=== PATIENT | female | born 1945 | race Caucasian/White ===

== ENCOUNTER 2020-10-05 06:08 | Emergency (ER) | payer MEDICARE, SELFPAY ==
--- NOTE | ~2020-10-05 | CT_ITS ---
EXAMINATION: CT ABDOMEN AND PELVIS WITHOUT CONTRAST CLINICAL INFORMATION: Bright red blood per rectum. History of colitis. COMPARISON: Previous CT of the abdomen and pelvis most recent September 2014 TECHNIQUE: Multidetector volumetric imaging was performed from the superior aspect of the liver through the pubic symphysis. Sagittal and coronal reformatted images were obtained on the technologist's workstation. This CT examination was performed using dose optimization techniques as appropriate, variously including the following: *Automated exposure control *Adjustment of mA and/or kV according to patient size (this includes techniques or standardized protocols for targeted exams where dose is matched to indication/reason for exam; i.e. extremities or head) *Use of iterative reconstruction technique DLP: 613 mGy-cm FINDINGS: LUNG BASES: The visualized lung bases are unremarkable. LIVER, GALLBLADDER, AND BILIARY TREE: The liver is normal in size, shape, and attenuation. No focal hepatic lesion or biliary ductal dilatation is present. The gallbladder is nondistended identified. PANCREAS: Unremarkable. SPLEEN: Unremarkable. ADRENAL GLANDS: Unremarkable. KIDNEYS AND URETERS: The kidneys are normal in size, shape, and attenuation. No hydronephrosis, hydroureter, or calculi seen. No perinephric stranding. BLADDER: Unremarkable. GASTROINTESTINAL TRACT: There is diverticulosis of the colon. No evidence of diverticulitis or colitis is seen. ABDOMINAL WALL: No significant hernia is appreciated. LYMPH NODES: Normal. VASCULAR: There is evidence of atherosclerotic disease. No aneurysm is seen. PELVIC VISCERA: There may be a small left ovarian cyst. This measures 1.2 cm. There are left ovarian calcifications. This does not appear appreciably changed. The right ovary is unremarkable. The uterus may have been removed. OSSEOUS STRUCTURES: There is an L1 vertebral body compression fracture and Schmorl's node. There are degenerative changes of the spine and hip joints. CT/CT abdomen pelvis wo con IMPRESSION: Severe diverticulosis of the colon. No evidence of diverticulitis or colitis.
[2020-10-05 06:17] VITALS: BP 175/70; PULSE 92; RESP 18; TEMP 36.4; O2SAT 95; BMI 33.2
--- NOTE | 2020-10-05 06:21 | ECG_ITS ---
Test Reason : GI BLEED Blood Pressure : / mmHG Vent. Rate : 080 BPM Atrial Rate : 080 BPM P-R Int : 150 ms QRS Dur : 066 ms QT Int : 386 ms P-R-T Axes : 091 049 063 degrees QTc Int : 445 ms Normal sinus rhythm Normal ECG When compared with ECG of 30-DEC-2017 08:55, No significant change was found Referred By: Mary Herman Electronically Signed By:ERMIAS BACA MD
--- NOTE | 2020-10-05 06:27 | ED.GIBLEED ---
HPI - GI Bleed General Chief complaint: GI Bleed Stated complaint: Rectal Bleed Time Seen by Provider: 10/05/20 06:21 Source: patient Mode of arrival: EMS History of Present Illness HPI Narrative: 75-year-old female brought in by EMS for onset of bright red blood per rectum that was painless in nature and not associated with any abdominal pain, fever, chills, vomiting, but patient states some mild nausea. Otherwise, patient denies any shortness of breath or chest pain/palpitations. Patient sources that she has a history a fake eye since childhood and has had a prior left lung removal and otherwise only surgical history is cholecystectomy and tubal ligation. Patient is unsure if she has ever had issues with stomach ulcers. Related Data Allergies Allergy/AdvReac Type Severity Reaction Status Date / Time Iodinated Contrast Media Allergy Severe RED PALMS Unverified 02/27/20 14:44 [IV Dye, Iodine Containing] SEASONAL ALLERGIES Allergy Unknown RUNNY NOSE Uncoded 02/27/20 14:44 Review of Systems Review of Systems: Pertinent positives and negatives as stated in HPI and 10 point review of systems is otherwise negative PMFSH Past Medical History Source: nursing notes reviewed Medical History Blind right eye Colitis History of prediabetes HTN (hypertension) Surgical History H/O tubal ligation History of cholecystectomy S/P partial lobectomy of lung Physical Exam Vital Signs: Vital Signs: Last Vital Signs Temp 97.6 F 10/05/20 06:17 Pulse 92 10/05/20 06:17 Resp 18 10/05/20 06:17 BP 175/70 H 10/05/20 06:17 Pulse Ox 95 10/05/20 06:17 Body Mass Index 33.2 VITAL SIGNS: Reviewed. GENERAL: Well developed, well nourished, in no acute distress. HEAD: Normocephalic/atraumatic EYES: PERRLA, EOMI, blind right eye EARS: Ext canals without abnormality NOSE: Nares patent bilateral OROPHARYNX: no oral lesions noted, posterior pharynx clear NECK: Supple, no adenopathy LUNGS: Normal breath sounds right-side. SpO2<95> CARDIOVASCULAR: Regular rate and rhythm without noted murmurs ABDOMEN: Soft, non-tender, non-distended with bowel sounds. MANDY: Noninflamed external hemorrhoids noted, minimal stool in rectal vault with light brown mixed with pinkish, good rectal tone NEUROLOGIC: Alert and oriented x 4. Course Course Course Narrative: 75-year-old female with history and clinical presentation of what appears to be lower GI bleed of unknown etiology but does not appear to be hemorrhoidal in nature. Patient is not on anticoagulation and is hemodynamically stable. Signed out to Dr Payne. MDM - GI Bleed Lab Data Result diagrams: 10/05/20 06:44 10/05/20 06:44 Labs: Lab Results 10/05/20 Range/Units 06:44 Stool Occult Blood NEGATIVE (NEGATIVE)
[2020-10-05 06:54] LABS: MANUAL DIFF FLAG NO
[2020-10-05 06:58] LABS: OBS Int Ctl Valid YES; OBS1 NEGATIVE (NEGATIVE)
[2020-10-05 07:06] LABS: Basophils Percent Auto 0.4 % (0-2); Eosinophils Absolute Auto 0.2 X10*3/uL (0.0-0.4); Eosinophils Percent Auto 1.8 % (0-4); Hematocrit 36.4 % (37-47); Hemoglobin 12.4 g/dl (12.0-16.0); Imm Gran Abs Auto 0.03 X10*3/uL (0.00-0.03); Imm Gran Pct Auto 0.4 % (0.0-0.4); Lymphocytes Percent Auto 23.9 % (20-40); Mean Corpuscular HGB Conc 34.1 g/dl (31.0-35.0); Mean Corpuscular Volume 93.8 fL (80-98); Monocytes Absolute Auto 0.6 X10*3/uL (0.1-1.2); Monocytes Percent Auto 6.8 % (2-11); Neutrophils Absolute Auto 5.6 X10*3/uL (2.0-8.3); Neutrophils Percent Auto 66.7 % (45-73); Platelet Count 201 X10*3/uL (160-400); Red Blood Count 3.88 X10*6/uL (4.20-5.50); Red Cell Distribution Width 11.9 % (11.0-16.0); White Blood Count 8.4 X10*3/uL (4.8-10.8)
[2020-10-05 07:09] LABS: COVID-19 Test Negative (Negative); IDNOW Serial# 9DD0AD1C; INTERNATIONAL NORM RATIO 1.1 (0.9-1.1)
[2020-10-05 07:19] LABS: Alanine Aminotransferase 18 U/L (0-31); Albumin Level 3.9 g/dL (3.5-5.0); Alkaline Phosphatase 86 U/L (39-117); Anion Gap 13 (12-20); Aspartate Amino Transferase 19 U/L (5-31); Bilirubin Total 0.8 mg/dL (0.0-1.0); Blood Urea Nitrogen 24 mg/dL (9-16); Calcium 9.1 mg/dL (8.4-10.2); Carbon Dioxide 22 mmol/L (22-29); Chloride 109 mmol/L (96-108); Creatinine Clr Calc Pharmacy 50.5; Estimated Glomerular Filt Rate > 60; Glucose Random 107 mg/dL (60-115); Potassium 4.1 mmol/L (3.3-5.1); Sodium 140 mmol/L (135-145); Total Protein 6.6 g/dL (6.5-8.0)
[2020-10-05 07:39] LABS: OBS Int Ctl Valid YES; OBS1 NEGATIVE (NEGATIVE)
[2020-10-05 10:57] VITALS: BP 128/69; PULSE 73
[2020-10-05 11:10] LABS: Hematocrit 36.3 % (37-47); Hemoglobin 12.5 g/dl (12.0-16.0); Mean Corpuscular HGB Conc 34.4 g/dl (31.0-35.0); Mean Corpuscular Hemoglobin 32.5 pg (27.0-33.0); Mean Corpuscular Volume 94.3 fL (80-98); Platelet Count 249 X10*3/uL (160-400); Red Blood Count 3.85 X10*6/uL (4.20-5.50); Red Cell Distribution Width 11.9 % (11.0-16.0); White Blood Count 7.1 X10*3/uL (4.8-10.8)
== END 2020-10-05 12:13 | disposition home or self-care (01) ==
PROVIDERS: Student in an Organized Health Care Education/Training Program; Emergency Provider Emergency Medicine; PCP Internal Medicine
DX: K92.2 Gastrointestinal hemorrhage, unspecified (principal); Z20.822 Contact with and (suspected) exposure to COVID-19; Z79.899 Other long term (current) drug therapy
CPT/HCPCS: 36415; 74176; 80053; 82272; 85025; 85027; 85610; 86850; 86900; 86901; 87635; 93005; 99284

== ENCOUNTER 2021-08-13 17:00 | Emergency (ER) | payer MEDICARE, SELFPAY ==
--- NOTE | ~2021-08-13 | US_ITS ---
EXAMINATION: US VENOUS ULTRASOUND WITH DOPPLER LOWER EXTREMITY, RIGHT CLINICAL INFORMATION: Pain COMPARISON: None TECHNIQUE: Ultrasound of the deep veins is performed from the hip to the calf with compression sonography and color and pulse Doppler assessment. Spectral analysis with color-flow imaging is performed. FINDINGS: There is normal venous compression and respiratory variation and augmented flow. The visualized common femoral vein, superficial femoral vein, profunda femoral vein, popliteal vein, and the trifurcation region shows no evidence of deep venous thrombosis. There is no significant popliteal fossa cyst. If the patient's symptoms persist, followup ultrasound in 5 days 7 days might be of value to exclude proximal propagation from a non-visualized calf vein. US/US venous duplex LE RT IMPRESSION: No DVT demonstrated in the right lower extremity.
[2021-08-13 17:08] VITALS: BP 175/82; PULSE 86; RESP 16; TEMP 37.1; O2SAT 98; BMI 32.1
[2021-08-13 17:21] LABS: MANUAL DIFF FLAG NO
[2021-08-13 17:23] LABS: Basophils Percent Auto 0.4 % (0-2); Eosinophils Absolute Auto 0.1 X10*3/uL (0.0-0.4); Eosinophils Percent Auto 1.5 % (0-4); Hematocrit 38.3 % (37.0-47.0); Imm Gran Abs Auto 0.02 X10*3/uL (0.00-0.03); Imm Gran Pct Auto 0.3 % (0.0-0.4); Lymphocytes Absolute Auto 2.6 X10*3/uL (1.2-4.9); Lymphocytes Percent Auto 32.9 % (20-40); Mean Corpuscular HGB Conc 33.9 g/dl (31.0-35.0); Mean Corpuscular Volume 94.3 fL (80.0-98.0); Mean Platelet Volume 9.7 fL (9.4-12.3); Monocytes Absolute Auto 0.5 X10*3/uL (0.1-1.2); Monocytes Percent Auto 6.8 % (2-11); Neutrophils Absolute Auto 4.6 x10*3/uL (2.0-8.3); Neutrophils Percent Auto 58.1 % (45-73); Platelet Count 258 X10*3/uL (160-400); Red Blood Count 4.06 X10*6/uL (4.20-5.50); Red Cell Distribution Width 12.1 % (11.0-16.0); White Blood Count 7.9 X10*3/uL (4.8-10.8)
[2021-08-13 17:40] LABS: Anion Gap 10 (12-20); Blood Urea Nitrogen 23 mg/dL (9-16); Calcium 9.5 mg/dL (8.4-10.2); Carbon Dioxide 28 mmol/L (22-29); Chloride 106 mmol/L (96-108); Creatinine Clr Calc Pharmacy 41.3; Estimated Glomerular Filt Rate 50; Glucose Random 100 mg/dL (60-115); Sodium 140 mmol/L (135-145)
--- NOTE | 2021-08-13 19:04 | ED_ITS ---
HPI - General Adult General Chief complaint: Extremity Injury, Lower <EDU Rodas - Last Filed: 08/13/21 19:10> Stated complaint: bruised R leg possible blood clot <EDU Rodas - Last Filed: 08/13/21 19:10> Time Seen by Provider: 08/13/21 17:55 <EDU Rodas - Last Filed: 08/13/21 19:10> History of Present Illness HPI narrative: Patient complains of right thigh pain and bruising for about 8 weeks after a full which injured the back of her thigh, she did have an ultrasound done by her primary doctor which was negative for blood clot, she is concerned today as some of the bruising some of the swelling and some of the pain still remain af ter a week's There is no shortness of breath no other complaints no new injury <EDU Rodas - Last Filed: 08/13/21 19:10> Related Data Allergies/adverse reactions: Allergies Allergy/AdvReac Type Severity Reaction Status Date / Time Iodinated Contrast Media Allergy Severe RED PALMS Unverified 02/27/20 14:44 [IV Dye, Iodine Containing] SEASONAL ALLERGIES Allergy Unknown RUNNY NOSE Uncoded 02/27/20 14:44 <EDU Rodas - Last Filed: 08/13/21 19:10> Review of Systems Review of Systems: Positive for right thigh pain Negative no fever no chills no dizziness no weakness no headache no neck pain no chest pain no shortness of breath no difficulty breathing no abdominal pain no nausea or vomiting no other extremity pains no numbness weakness or tingling <EDU Rodas - Last Filed: 08/13/21 19:10> Yes all other systems are reviewed and are negative <EDU Rodas - Last Filed: 08/13/21 19:10> PMFSH Past Medical History Source: nursing notes reviewed <EDU Rodas - Last Filed: 08/13/21 19:10> Medical History: Medical History Blind right eye Colitis History of prediabetes HTN (hypertension) <EDU Rodas Last Filed: 08/13/21 19:10> Surgical History: Surgical History H/O tubal ligation History of cholecystectomy S/P partial lobectomy of lung <EDU Rodas - Last Filed: 08/13/21 19:10> Social History Social History: Social History Advance Directives: No Advance Directives Information Provided: No <EDU Rodas Last Filed: 08/13/21 19:10> Physical Exam ED Vital Signs: Vital Signs - 24 hr 08/13/21 17:08 08/13/21 19:07 Temperature 98.7 F 97.5 F Pulse Rate 86 88 Respiratory Rate 16 20 Blood Pressure 175/82 H 162/71 H Pulse Oximetry 98 97 BMI result Body Mass Index 32.1 <EDU Rodas Last Filed: 08/13/21 19:10> Vital Signs - 24 hr 08/13/21 17:08 08/13/21 19:07 Temperature 98.7 F 97.5 F Pulse Rate 86 88 Respiratory Rate 16 20 Blood Pressure 175/82 H 162/71 H Pulse Oximetry 98 97 BMI result Body Mass Index 32.1 <EDU Freire Last Filed: 08/13/21 19:40> General appearance is no acute distress Head is normocephalic atraumatic Neck is supple nontender Chest is clear to auscultation no respiratory distress The back full range of motion The extremities the right lateral posterior thigh has mild ecchymosis, mild swelling and some tenderness, there is full range of motion in the hip and the knee, skin is intact and neurovascular intact distal Neuro gait and balance are normal, motor is 5/5 x4 and sensation is intact and symmetrical <EDU Rodas - Last Filed: 08/13/21 19:10> Course Course Course Narrative: Ultrasound results is pending and case is signed out to physician felicia palomo to communicate results and re-evaluate dispo patient <EDU Rodas Last Filed: 08/13/21 19:10> Reevaluation(s) Reevaluation #1: Ultrasound negative for DVT of the right lower extremity. At this time patient will be discharged home. Advised her to follow-up with her PCP. Return with new or worsening symptoms. Comfortable discharge home. <EDU Freire - Last Filed: 08/13/21 19:40> Time: 19:39 <EDU Freire - Last Filed: 08/13/21 19:40> Medical Decision Making Lab Data Result diagrams: : 08/13/21 17:17 08/13/21 17:17 <EDU Rodas - Last Filed: 08/13/21 19:10> Labs: Lab Results 08/13/21 08/13/21 Range/Units 17:17 17:17 WBC 7.9 (4.8-10.8) X10*3/uL RBC 4.06 L (4.20-5.50) X10*6/uL Hgb 13.0 (12.0-16.0) g/dl Hct 38.3 (37.0-47.0) % MCV 94.3 (80.0-98.0) fL MCH 32.0 (27.0-33.0) pg MCHC 33.9 (31.0-35.0) g/dl RDW 12.1 (11.0-16.0) % Plt Count 258 (160-400) X10*3/uL MPV 9.7 (9.4-12.3) fL Immature Gran % (Auto) 0.3 (0.0-0.4) % Neut % (Auto) 58.1 (45-73) % Lymph % (Auto) 32.9 (20-40) % Christian % (Auto) 6.8 (2-11) % Eos % (Auto) 1.5 (0-4) % Baso % (Auto) 0.4 (0-2) % Lymph # (Auto) 2.6 (1.2-4.9) X10*3/uL Christian # (Auto) 0.5 (0.1-1.2) X10*3/uL Eos # (Auto) 0.1 (0.0-0.4) X10*3/uL Baso # (Auto) 0.0 (0.0-0.2) X10*3/uL Abs Immat Gran (auto) 0.02 (0.00-0.03) X10*3/uL Absolute Neuts (auto) 4.6 (2.0-8.3) x10*3/uL Absolute Nucleated RBC 0.000 (0.0-0.012) X10*3/uL Nucleated RBC % (auto) 0.0 (0.0-0.2) /100WBC Sodium 140 (135-145) mmol/L Potassium 4.0 (3.3-5.1) mmol/L Chloride 106 (96-108) mmol/L Carbon Dioxide 28 (22-29) mmol/L Anion Gap 10 L (12-20) BUN 23 H (9-16) mg/dL Creatinine 1.07 (0.5-1.4) mg/dL Estim Creat Clear Calc 41.3 Estimated GFR 50 Random Glucose 100 (60-115) mg/dL Calcium 9.5 (8.4-10.2) mg/dL <EDU Rodas - Last Filed: 08/13/21 19:10> Lab Results 08/13/21 08/13/21 Range/Units 17:17 17:17 WBC 7.9 (4.8-10.8) X10*3/uL RBC 4.06 L (4.20-5.50) X10*6/uL Hgb 13.0 (12.0-16.0) g/dl Hct 38.3 (37.0-47.0) % MCV 94.3 (80.0-98.0) fL MCH 32.0 (27.0-33.0) pg MCHC 33.9 (31.0-35.0) g/dl RDW 12.1 (11.0-16.0) % Plt Count 258 (160-400) X10*3/uL MPV 9.7 (9.4-12.3) fL Immature Gran % (Auto) 0.3 (0.0-0.4) % Neut % (Auto) 58.1 (45-73) % Lymph % (Auto) 32.9 (20-40) % Christian % (Auto) 6.8 (2-11) % Eos % (Auto) 1.5 (0-4) % Baso % (Auto) 0.4 (0-2) % Lymph # (Auto) 2.6 (1.2-4.9) X10*3/uL Christian # (Auto) 0.5 (0.1-1.2) X10*3/uL Eos # (Auto) 0.1 (0.0-0.4) X10*3/uL Baso # (Auto) 0.0 (0.0-0.2) X10*3/uL Abs Immat Gran (auto) 0.02 (0.00-0.03) X10*3/uL Absolute Neuts (auto) 4.6 (2.0-8.3) x10*3/uL Absolute Nucleated RBC 0.000 (0.0-0.012) X10*3/uL Nucleated RBC % (auto) 0.0 (0.0-0.2) /100WBC Sodium 140 (135-145) mmol/L Potassium 4.0 (3.3-5.1) mmol/L Chloride 106 (96-108) mmol/L Carbon Dioxide 28 (22-29) mmol/L Anion Gap 10 L (12-20) BUN 23 H (9-16) mg/dL Creatinine 1.07 (0.5-1.4) mg/dL Estim Creat Clear Calc 41.3 Estimated GFR 50 Random Glucose 100 (60-115) mg/dL Calcium 9.5 (8.4-10.2) mg/dL <EDU Freire - Last Filed: 08/13/21 19:40> Discharge Plan Discharge Clinical Impression: Pain in right thigh <EDU Rodas - Last Filed: 08/13/21 19:10> Patient Disposition: Home, Self-Care <EDU Rodas - Last Filed: 08/13/21 19:10> Additional Instructions: Ultrasound was done and did not show any blood clot in the right thigh It is possible that all these symptoms are remaining from the traumatic injury a weeks ago, but it has been a long time so follow closely with primary doctor or orthopedist, physical therapy may be helpful Worrisome symptoms include shortness of breath, worsening leg swelling, pain, nausea, vomiting, chest pain. If symptoms fail to resolve you may need further evaluation or CT scan of the extremity to rule out any other possible cause of the mild swelling and continued pain Return to the ER any time any worse condition or any concerns <EDU Rodas Last Filed: 08/13/21 19:10> Referrals: Cindy Simpson MD [Primary Care Provider] - 2 days Tano Benson MD [Physician] - 1 week <EDU Rodas - Last Filed: 08/13/21 19:10> Stand Alone Forms: Work/School Release <EDU Rodas - Last Filed: 08/13/21 19:10>
[2021-08-13 19:07] VITALS: BP 162/71; PULSE 88; RESP 20; TEMP 36.4; O2SAT 97
--- NOTE | 2021-08-13 20:08 | PC.NURSE ---
PT a&o, no sob or chest pain. pt getting dressed. Reviewed discharge instructions. Pt verbalized understanding.
== END 2021-08-13 20:16 | disposition home or self-care (01) ==
PROVIDERS: Emergency Provider Emergency Medicine Emergency Medical Services; PCP Internal Medicine
DX: M79.604 Pain in right leg (principal); R60.0 Localized edema; Z79.899 Other long term (current) drug therapy
CPT/HCPCS: 36415; 80048; 85025; 93971; 99283; 99284

== ENCOUNTER 2022-05-02 12:01 | Emergency (ER) | payer MEDICARE, SELFPAY ==
--- NOTE | ~2022-05-02 | XR_ITS ---
EXAMINATION: XR CHEST CLINICAL INFORMATION: Cough and SOB COMPARISON: None TECHNIQUE: 2 views of the chest were obtained. FINDINGS: The lungs are well-expanded and clear. Heart size and perivascular is normal. The heart size is mildly enlarged. Pulmonary vascularity is within normal limits. No gross bony abnormality seen. XR/XR chest 2V IMPRESSION: Mild cardiomegaly. No acute process seen.
--- NOTE | 2022-05-02 12:06 | ECG_ITS ---
Test Reason : weakness Blood Pressure : / mmHG Vent. Rate : 082 BPM Atrial Rate : 082 BPM P-R Int : 170 ms QRS Dur : 064 ms QT Int : 354 ms P-R-T Axes : 069 042 061 degrees QTc Int : 413 ms Normal sinus rhythm Nonspecific ST abnormality Inferior leads Abnormal ECG When compared with ECG of 05-OCT-2020 07:23, ST more depressed Inferior leads Referred By: Aida Rosen Electronically Signed By:PHYLLIS JACKSON MD
--- NOTE | 2022-05-02 12:06 | ED.GENADULT ---
HPI - General Adult General Chief complaint: Upper Respiratory Symptoms Stated complaint: FLU LIKE SINCE T-I PER EMS Time Seen by Provider: 05/02/22 12:05 Source: patient, family (daughter) and EMS Mode of arrival: EMS Limitations: no limitations History of Present Illness HPI narrative: Patient is a 76 year old assigned female at with a history of lung cancer s/p left lobe resection presenting to the emergency department today with a cough and feeling generally unwell. Patient states that since yesterday, she has felt unwell with a cough and chills. Patient denies any dizziness, lightheadedness, abdominal pain, nausea, vomiting, fever, chills, blurry vision, double vision, loss of vision, chest pain, difficulty breathing, shortness of breath, back pain, night sweats, pain with urination, increased urinary frequency, increased urinary urgency, blood in her urine or stool, syncope or a near syncopal episode, recent trauma or falls, bowel incontinence, bladder incontinence, bowel retention, bladder retention, or any other complaints at this time. Onset (ago): day(s) (1) Severity: mild Severity scale (1-10): 2 Relieving factors: none Exacerbating factors: none Associated symptoms: cough and fever/chills Treatments prior to arrival: none Related Data Previous Rx's Medication Instructions Recorded benzonatate 100 mg capsule 100 mg PO BID PRN cough 7 days #14 05/02/22 caps Allergies Allergy/AdvReac Type Severity Reaction Status Date / Time Iodinated Contrast Media Allergy Severe RED PALMS Unverified 02/27/20 14:44 [IV Dye, Iodine Containing] SEASONAL ALLERGIES Allergy Unknown RUNNY NOSE Uncoded 02/27/20 14:44 Review of Systems Constitutional: Constitutional: Reports no additional constitutional complaints, Reports chills, Denies fever(s) and Denies night sweats Eyes: Eyes: Reports no additional eye complaints, Denies blurry vision, Denies change in vision, Denies diplopia, Denies eye discharge, Denies loss of vision and Denies eye pain ENT: Denies dizziness Cardiovascular: Cardiovascular: Reports no additional cardiovascular complaints, Denies chest pain, Denies lightheadedness, Denies Loss of Consciousness and Denies dyspnea Respiratory: Respiratory: Reports no additional respiratory complaints, Reports cough and Denies dyspnea Gastrointestinal: Gastrointestinal: Reports no additional gastrointestinal complaints, Denies abdominal pain, Denies melena, Denies hematochezia, Denies change in bowel habits and Denies change in stool character Genitourinary: Genitourinary: Denies hematuria, Denies urinary frequency, Denies dysuria, Denies urinary incontinence, Denies urinary hesitancy and Denies urinary urgency Musculoskeletal: Musculoskeletal: Reports no additional musculoskeletal complaints, Denies numbness and Denies tingling Neurologic: Denies dizziness, Denies loss of vision, Denies numbness and Denies tingling Psychiatric: Psychiatric: Reports no additional psychiatric complaints Endocrine: Endocrine: Reports no additional endocrine complaints Hematologic/Lymphatic: Hematologic/Lymphatic: Reports no additional hematologic/lymphatic complaints Allergic/Immunologic: Allergic/Immunologic: Reports no additional allergic/immunologic complaints PMF Past Medical History Attestation statement: The following information was validated with the patient. Source: old records reviewed Medical History Blind right eye Colitis History of prediabetes HTN (hypertension) Surgical History H/O tubal ligation History of cholecystectomy S/P partial lobectomy of lung Social History Social History Advance Directives: Yes Advance Directives Information Provided: Yes Advance Directives on File: No Physical Exam ED Vital Signs: Vital Signs - 24 hr 05/02/22 12:37 Temperature 98.2 F Pulse Rate 81 Respiratory Rate 14 Blood Pressure 138/74 Pulse Oximetry 95 Oxygen Delivery Method Room Air BMI result Body Mass Index 30.8 Const General: cooperative, no acute distress, alert and awake Nutritional Appearance: well nourished Orientation/consciousness: patient oriented x3 Limitations: no limitations [facility] Head: Yes normal to inspection and Yes atraumatic Ears: hearing grossly normal bilaterally and external ears normal General nose exam: Normal external nose present, no nasal discharge noted and no epistaxis Face and sinus: Yes normal facial exam, No abrasion and No laceration Mouth: Normal oral and palatal mucosa present, no drooling and no muffled voice Eyes General: appearance normal, both eyes and all related structures Periorbital: periorbital findings normal Eyelids: Yes eyelids normal Conjunctivae: conjunctivae normal Pupils: Equal, round and reactive pupils present EOM: EOMs intact bilaterally Neck Neck: Yes normal visual inspection, Yes full ROM and Yes no lymphadenopathy Chest Chest palpation & inspection: normal inspection of the chest Resp Effort & Inspection: normal respiratory effort and able to speak in complete sentences Auscultation: clear to auscultation bilaterally Cardio Rate: regular rate Rhythm: regular rhythm GI Inspection: Yes normal to inspection Neuro General: patient oriented x3 and moves all extremities Cranial nerves: Yes Equal, round and reactive pupils present Cognition (Neuro): normal cognition Motor exam (neuro): 5/5 motor strength present throughout Sensory Exam: Normal double simultaneous stimulation for sensation Coordination: [id number] test normal Extrem General: Yes normal to inspection, Yes full ROM and Yes capillary refill normal Psych Appearance: grossly normal Mental Status: mental status grossly normal Affect: normal affect Attitude: cooperative Thought process: Normal thought process present Thought content: Normal thought content present Insight: Good insight present (Psych) Medical Decision Making MDM Narrative Medical decision making narrative: Patient is a 76 year old assigned female at with a history of lung cancer s/p left lobe resection presenting to the emergency department today with a cough and chills. Patient's physical exam was unremarkable. Patient's blood work was unremarkable. Patient's EKG was unremarkable. Patient's chest x-ray showed no acute process. Patient's rapid influenza test was positive. I explained my physical exam findings as well as all test results to the patient and the patient's daughter. I answered all questions asked by the patient and the patient's daughter. I stressed the importance of the patient taking her medication as prescribed. I stressed the importance of the patient following up with her primary care provider. I stressed the importance of the patient returning to the emergency department immediately if her symptoms were to worsen or if she were to develop any dizziness, shortness of breath, difficulty breathing, chest pain, blurry vision, loss of vision, nausea, vomiting, abdominal pain, fever, chills, back pain, or any other complaints. Patient and the patient's daughter verbalized agreement and understanding with this treatment plan and discharge. Medical Records Medical records reviewed: Yes I reviewed the patient's medical records. Lab Data Lab results reviewed: Yes I reviewed the patient's lab results. Result diagrams: 05/02/22 12:48 05/02/22 12:48 Labs: Lab Results 05/02/22 05/02/22 05/02/22 Range/Units 12:42 12:48 12:48 WBC 6.2 (4.8-10.8) X10*3/uL RBC 4.21 (4.20-5.50) X10*6/uL Hgb 13.3 (12.0-16.0) g/dl Hct 39.6 (37.0-47.0) % MCV 94.1 (80.0-98.0) fL MCH 31.6 (27.0-33.0) pg MCHC 33.6 (31.0-35.0) g/dl RDW 11.8 (11.0-16.0) % Plt Count 231 (160-400) X10*3/uL MPV 9.6 (9.4-12.3) fL Immature Gran % (Auto) 0.2 (0.0-0.4) % Neut % (Auto) 82.4 H (45-73) % Lymph % (Auto) 10.6 L (20-40) % Sterling % (Auto) 5.6 (2-11) % Eos % (Auto) 0.6 (0-4) % Baso % (Auto) 0.6 (0-2) % Lymph # (Auto) 0.7 L (1.2-4.9) X10*3/uL Sterling # (Auto) 0.4 (0.1-1.2) X10*3/uL Eos # (Auto) 0.0 (0.0-0.4) X10*3/uL Baso # (Auto) 0.0 (0.0-0.2) X10*3/uL Abs Immat Gran (auto) 0.01 (0.00-0.03) X10*3/uL Absolute Neuts (auto) 5.1 (2.0-8.3) x10*3/uL Absolute Nucleated RBC 0.000 (0.0-0.012) X10*3/uL Nucleated RBC % (auto) 0.0 (0.0-0.2) /100WBC Sodium 140 (135-145) mmol/L Potassium 4.3 (3.3-5.1) mmol/L Chloride 107 (96-108) mmol/L Carbon Dioxide 23 (22-29) mmol/L Anion Gap 14 (12-20) BUN 17 H (9-16) mg/dL Creatinine 0.92 (0.5-1.4) mg/dL Estim Creat Clear Calc 50.9 Estimated GFR 59 Random Glucose 109 (60-115) mg/dL Calcium 8.6 D (8.4-10.2) mg/dL Magnesium 2.1 (1.6-2.6) mg/dL Total Bilirubin 0.7 (0.0-1.0) mg/dL AST 27 D (5-31) U/L ALT 23 (0-31) U/L Alkaline Phosphatase 83 (39-117) U/L Troponin I High Sens (<3.5-17.0) ng/L B-Natriuretic Peptide (<100) pg/mL Total Protein 6.7 (6.5-8.0) g/dL Albumin 3.7 (3.5-5.0) g/dL Influenza Type A (PCR) POSITIVE A (Negative) Influenza Type B (PCR) NEGATIVE (Negative) RSV RNA Qual (PCR) NEGATIVE (Negative) SARS-CoV-2 RNA (RT-PCR) NEGATIVE (Negative) 05/02/22 05/02/22 Range/Units 12:48 12:49 WBC (4.8-10.8) X10*3/uL RBC (4.20-5.50) X10*6/uL Hgb (12.0-16.0) g/dl Hct (37.0-47.0) % MCV (80.0-98.0) fL MCH (27.0-33.0) pg MCHC (31.0-35.0) g/dl RDW (11.0-16.0) % Plt Count (160-400) X10*3/uL MPV (9.4-12.3) fL Immature Gran % (Auto) (0.0-0.4) % Neut % (Auto) (45-73) % Lymph % (Auto) (20-40) % Sterling % (Auto) (2-11) % Eos % (Auto) (0-4) % Baso % (Auto) (0-2) % Lymph # (Auto) (1.2-4.9) X10*3/uL Sterling # (Auto) (0.1-1.2) X10*3/uL Eos # (Auto) (0.0-0.4) X10*3/uL Baso # (Auto) (0.0-0.2) X10*3/uL Abs Immat Gran (auto) (0.00-0.03) X10*3/uL Absolute Neuts (auto) (2.0-8.3) x10*3/uL Absolute Nucleated RBC (0.0-0.012) X10*3/uL Nucleated RBC % (auto) (0.0-0.2) /100WBC Sodium (135-145) mmol/L Potassium (3.3-5.1) mmol/L Chloride (96-108) mmol/L Carbon Dioxide (22-29) mmol/L Anion Gap (12-20) BUN (9-16) mg/dL Creatinine (0.5-1.4) mg/dL Estim Creat Clear Calc Estimated GFR Random Glucose (60-115) mg/dL Calcium (8.4-10.2) mg/dL Magnesium (1.6-2.6) mg/dL Total Bilirubin (0.0-1.0) mg/dL AST (5-31) U/L ALT (0-31) U/L Alkaline Phosphatase (39-117) U/L Troponin I High Sens 3.5 (<3.5-17.0) ng/L B-Natriuretic Peptide 141 H (<100) pg/mL Total Protein (6.5-8.0) g/dL Albumin (3.5-5.0) g/dL Influenza Type A (PCR) (Negative) Influenza Type B (PCR) (Negative) RSV RNA Qual (PCR) (Negative) SARS-CoV-2 RNA (RT-PCR) (Negative) Imaging Data Chest x-ray: Attestation: I personally reviewed and interpreted this imaging study as follows: My impression: No acute process. Radiologist's impression: EXAMINATION: XR CHEST CLINICAL INFORMATION: Cough and SOB COMPARISON: None TECHNIQUE: 2 views of the chest were obtained. FINDINGS: The lungs are well-expanded and clear. Heart size and perivascular is normal. The heart size is mildly enlarged. Pulmonary vascularity is within normal limits. No gross bony abnormality seen. XR/XR chest 2V IMPRESSION: Mild cardiomegaly. No acute process seen. ? Dictated By: Ian Brown MD Signed By: Electronically signed by Ian Brown MD 05/02/22 1256 ECG Data Attestation: I personally reviewed and interpreted this ECG as follows: Prior ECG tracings: available for review Interpretation: Vent. Rate: 082 BPM ? ? Atrial Rate: 082 BPM P-R Int: 170 ms? QRS Dur: 064 ms QT Int: 354 ms ? ? ? P-R-T Axes: 069 042 061 degrees QTc Int: 413 ms ? Normal sinus rhythm Normal ECG When compared with ECG of 05-OCT-2020 07:23, No significant change was found ? DD/ 1252 Discharge Plan Discharge Clinical Impression: Influenza A Patient Disposition: Home, Self-Care Instructions: Influenza (ED) Additional Instructions: Follow up with your primary care provider. Return to the emergency department immediately if your symptoms worsen or if you develop any dizziness, shortness of breath, difficulty breathing, chest pain, blurry vision, loss of vision, nausea, vomiting, abdominal pain, fever, chills, back pain, or any other complaints. Prescriptions: New benzonatate 100 mg capsule 100 mg PO BID PRN (Reason: cough) 7 Days Qty: 14 0RF Referrals: Cindy Simpson MD [Primary Care Provider] - Interventions: ED Discharge Assessment Last Done: 05/02/22 14:15 Discharge Date/Time: 05/02/22 14:15 Print Language: Lao
[2022-05-02 12:25] VITALS: BP 160/80; O2SAT 97
[2022-05-02 12:37] VITALS: BP 138/74; PULSE 81; RESP 14; TEMP 36.8; O2SAT 95; BMI 30.8
[2022-05-02 12:52] LABS: MANUAL DIFF FLAG NO
[2022-05-02 12:55] LABS: Basophils Percent Auto 0.6 % (0-2); Eosinophils Percent Auto 0.6 % (0-4); Hematocrit 39.6 % (37.0-47.0); Hemoglobin 13.3 g/dl (12.0-16.0); Imm Gran Abs Auto 0.01 X10*3/uL (0.00-0.03); Imm Gran Pct Auto 0.2 % (0.0-0.4); Lymphocytes Absolute Auto 0.7 X10*3/uL (1.2-4.9); Lymphocytes Percent Auto 10.6 % (20-40); Mean Corpuscular HGB Conc 33.6 g/dl (31.0-35.0); Mean Corpuscular Hemoglobin 31.6 pg (27.0-33.0); Mean Corpuscular Volume 94.1 fL (80.0-98.0); Mean Platelet Volume 9.6 fL (9.4-12.3); Monocytes Absolute Auto 0.4 X10*3/uL (0.1-1.2); Monocytes Percent Auto 5.6 % (2-11); Neutrophils Absolute Auto 5.1 x10*3/uL (2.0-8.3); Neutrophils Percent Auto 82.4 % (45-73); Platelet Count 231 X10*3/uL (160-400); Red Blood Count 4.21 X10*6/uL (4.20-5.50); Red Cell Distribution Width 11.8 % (11.0-16.0); White Blood Count 6.2 X10*3/uL (4.8-10.8)
--- OUTSIDE RECORDS SUMMARY | 2022-05-02 12:59 | XMS_ITS | Continuity of Care Document ---
:1945 Author Organization [facility] Address [address] [place] [id number]- Care Team Providers Name Role Phone Tatiana MORENO, Cindy [facility] Care [id number] Date(s): 03/29/22 - 04/28/22 [facility] [address] [place], [place] [address] Attending Physician: Toshia Montero Admitting Physician: AdmToshia rebollar Referring Physician: AdmtrToshia Allergies, Adverse Reactions, Alerts Substance Reaction Severity Status Other Environmental Allergy Acti ve Medications Advair Diskus 100 mcg-50 mcg inhalation powder 1 puffs, Inhalation, 2 times a day, # 180 each, 0 Refills, Maintenance, Powder Start Date: 03/11/11 Status: Orderedaspirin 81 mg oral tablet 1 tablet, By Mouth, Daily, # 30 tablet, 0 Refills, Maintenance, Tablet Start Date: 03/11/11 Status: Orderedcilostazol 50 mg oral tablet 1 tablet, By Mouth, 2 times a day, # 180 tablet, 0 Refills, Maintenance, Tablet Start Date: 03/11/11 Status: OrderedCompression Stockings See Instructions, # 2 pair, Refills 1, Tot. Refills 1, Maintenance, open toessurgical, calf length 20-30 mm Hg ins # [id number], 10/18/13 13:29:38 Start Date: 10/18/13 Status: OrderedCompression Stockings surgical, knee high length 20-30 mm Hg, # 4 pair, Maintenance, CVI Open toe, 11/15/18 8:33:16 EDT, Compound Start Date: 11/15/18 Status: OrderedCompression Stockings See Instructions, # 2 each, Maintenance, surgical, knee length 20-30 mm Hg, 03/29/22 15:01:00 EDT, Supply Start Date: 03/29/22 Status: OrderedCompression Stockings See Instructions, # 2 each, Refills 2, Tot. Refills 2, Maintenance, surgical, knee length 20-30 mm Hg DX: I87.2 I73.9, 01/01/21 16:13:00 EDT, Supply Start Date: 01/01/21 Status: OrderedCompression Stockings See Instructions, # 4 pair, Maintenance, surgical, calf length 20-30 mm Hg dx: pvd, venous insufficiency, 09/25/15 9:42:36 Start Date: 09/25/15 Status: Orderedcustom molded SHOE INSERT custom molded SHOE INSERT, See Instructions, # 1 pair, Refills 0, Tot. 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, 09/25/15 9:41:42, Compound Start Date: 09/25/15 Status: Orderedlisinopril 40 mg oral tablet 1 tablet, By Mouth, Daily, # 30 tablet, 0 Refills, Maintenance, Tablet Start Date: 03/11/11 Status: Orderedmetoprolol 25 mg oral tablet 0.5 tablet = 12.5 mg, By Mouth, 2 times a day, # 180 tablet, 0 Refills, Maintenance, 03/11/11 9:46:59 EDT, Tablet Start Date: 03/11/11 Status: Orderedomeprazole 20 mg oral enteric coated tablet 1 tablet, By Mouth, 2 times a day, # 120 tablet, 0 Refills, Maintenance, EC Tablet Start Date: 03/11/11 Status: Orderedsimvastatin 10 mg oral tablet 1 tablet, By Mouth, Daily at bedtime, # 30 tablet, 0 Refills, Maintenance, Tablet Start Date: 03/11/11 Status: OrderedTrelegy Ellipta 200 mcg-62.5 mcg-25 mcg/inh inhalation powder 0 Refills, Maintenance, 03/29/22 14:46:00 EDT, Partial fill upon patient request if the prescriptionis for a schedule II opioid drug. Start Date: 03/29/22 Status: Ordered Problem List Condition Confirmation Course Effective Dates Status Health I nformant Status AAA - Abdominal Confirmed Active aortic aneurysm Carotid artery Confirmed Active stenosis Obese class I Confirmed Active Pad Confirmed Active Venous (peripheral) Confirmed Active insufficiency Social History Social History Type Response Smoking Status Former smoker entered on: 09/23/14 Sex Note Event Display: Ultrasound Neck, Non-BH Authored Date: Patient Care team information Care Team PersonnelName: Kiesha Benito Position: [facility] Outreach Member Role: Lifetime Consulting Physician Name: Cindy Simpson MD Position: Reference Physician Member Role: PCP Address: Address: [address] [place] [phone]- Care Team Related PersonsName: RAFAT ROBERTS Address: home [address] [place] [id number] Name: LEANN REGALADO Address: home [address] [place] [address]
--- OUTSIDE RECORDS SUMMARY | 2022-05-02 12:59 | XMS_ITS | Continuity of Care Document ---
:1945 Author Organization [facility] Address [address] [place] [address]- Care Team Providers Name Role Phone Tatiana MORENO, Cindy [id number] Date(s): 03/25/22 - 04/24/22 [facility] [address] [address]- Attending Physician: Toshia Montero Admitting Physician: AdmtrToshia Referring Physician: Admtr, Ar8 Allergies, Adverse Reactions, Alerts Substance Reaction Severity [...] calf length 20-30 mm Hg ins # [id number], 10/18/13 13:29:38 Start Date: 10/18/13 Status: OrderedCompression [...] Status Former smoker entered on: 09/23/14 Sex Patient Care team information Care Team PersonnelName: Kiesha Benito Position: [facility] Outreach Member Role: Lifetime Consulting Physician Name: Cindy Simpson MD Position: Reference Physician Member Role: PCP Address: Address: [address] [place] [address]- Care Team Related PersonsName: RAFAT ROBERTS Address: home [address] [id number] Name: LEANN REGALADO Address: home [address] [place] [address]
--- OUTSIDE RECORDS SUMMARY | 2022-05-02 12:59 | XMS_ITS | Continuity of Care Document ---
:1945 Author Organization [facility] Address [address] [place] [address]- Care Team Providers Name Role Phone Cindy Simpson MD Primary Care Physician Encounter [facility] Date(s): 06/10/19 - 06/17/19 [facility] [address] [place] [address]- [facility] Attending Physician: Shelby Jordan NP Admitting Physician: Shelby Jordan NP Referring Physician: Cindy Simpson MD Allergies, Adverse Reactions, Alerts Substance Reaction Severity [...] Refills, Maintenance, Tablet Start Date: 03/11/11 Status: OrderedCombivent 103 mcg-18 mcg/inh inhalation aerosol with adapter 2 puffs, Inhalation, 4 times a day, # 14.7 Gm, 0 Refills, Maintenance, Aerosol Start Date: 03/11/11 Status: OrderedCompression Stockings See Instructions, # 4 pair, Maintenance, surgical, calf length 20-30 mm Hg dx: pvd, venous insufficiency, 09/25/15 9:42:36 Start Date: 09/25/15 Status: OrderedCompression Stockings See Instructions, # 2 pair, Refills 1, Tot. Refills 1, Maintenance, open toessurgical, calf length 20-30 mm Hg ins # [id number], 10/18/13 13:29:38 Start Date: 10/18/13 Status: OrderedCompression Stockings surgical, knee high length 20-30 mm Hg, # 4 pair, Maintenance, CVI Open toe, 11/15/18 8:33:16 EDT, Compound Start Date: 11/15/18 Status: Orderedcustom molded SHOE INSERT custom molded [...] Refills, Maintenance, Tablet Start Date: 03/11/11 Status: Ordered Problem List Condition Effective Dates Status Health Status Informant AAA - Abdominal aortic Active aneurysm(Confirmed) Carotid artery stenosis(Confirmed) Active Pad(Confirmed) Active Venous (peripheral) Active insufficiency(Confirmed) Vital Signs Most recent to oldest [Reference Range]: 1 Height 152.4 cm (06/10/19 11:55 AM) Weight 78.93 kg (06/10/19 11:55 AM) Body Mass Index [18.5-24.99] 33.98 *>HHI* (06/10/19 11:55 AM) Blood Pressure [90-138/55-84 mm Hg] 130/78 mm Hg (06/10/19 11:55 AM) Blood pressure sites Arm, left (06/10/19 11:55 AM) Weight Obtained Via Patient/family stated (06/10/19 11:55 AM) Social History Social History Type Response Smoking Status Former smoker entered on: 09/23/14 Sex
--- OUTSIDE RECORDS SUMMARY | 2022-05-02 12:59 | XMS_ITS | Continuity of Care Document ---
:1945 Author Organization [facility] Address [address] [place] [phone]- Care Team Providers Name Role Phone Tatiana MORENO, Cindy Primary Care Physician Encounter [facility] Date(s): 06/09/20 - 07/09/20 [facility] [address] [place] [id number] Attending Physician: Toshia Montero Admitting Physician: AdmToshia [...] calf length 20-30 mm Hg ins # [id number], 10/18/13 13:29:38 Start Date: 10/18/13 Status: OrderedCompression Stockings surgical, knee high length 20-30 mm Hg, # 4 pair, Maintenance, CVI Open toe, 11/15/18 8:33:16 EDT, Compound Start Date: 11/15/18 Status: OrderedCompression Stockings See Instructions, # 4 [...] Active Pad(Confirmed) Active Venous (peripheral) Active insufficiency(Confirmed) Social History Social History Type Response Smoking Status Former smoker entered on: 09/23/14 Sex
--- OUTSIDE RECORDS SUMMARY | 2022-05-02 12:59 | XMS_ITS | Continuity of Care Document ---
:1945 Author Organization [facility] Address [address] [place] [address]- Care Team Providers Name Role Phone Tatiana MORENO, Cindy Primary Care Physician [id number] Date(s): 03/03/22 - 04/02/22 [facility] [address] [place] [id number] Allergies, Adverse Reactions, Alerts Substance Reaction Severity [...] calf length 20-30 mm Hg ins # [id number], 10/18/13 13:29:38 Start Date: 10/18/13 Status: OrderedCompression [...] on: 09/23/14 Sex Patient Care team information PersonnelName: Tatiana MORENO, Cindy Address: Address: [address] [place] [address]
--- OUTSIDE RECORDS SUMMARY | 2022-05-02 12:59 | XMS_ITS | Continuity of Care Document ---
:1945 Author Organization [facility] Address [address] [place] [address]- Care Team Providers Name Role Phone Tatiana MORENO, Cindy [id number] Date(s): [facility] - [facility]/28/[facility] [address] [place] [address] Attending Physician: Roderick Welsh MD Admitting Physician: Roderick Welsh MD Referring Physician: Cindy Simpson MD Allergies, Adverse [...] calf length 20-30 mm Hg ins # [id number], 10/18/13 13:29:38 Start Date: 10/18/13 Status: OrderedCompression [...]
--- OUTSIDE RECORDS SUMMARY | 2022-05-02 12:59 | XMS_ITS | Continuity of Care Document ---
:1945 Author Organization [facility] Address [address] [place] [address]- Care Team Providers Name Role Phone Tatiana MORENO, Cindy Primary Care Physician Encounter [facility] [id number] Date(s): 12/24/19 - 01/23/20 [facility] [address] [place] [address]- [facility] Attending Physician: Toshia Montero Admitting Physician: Admtr, Mynor8 Referring Physician: Admtr, Ar8 Allergies, Adverse Reactions, [...] calf length 20-30 mm Hg ins # [id number], 10/18/13 13:29:38 Start Date: 10/18/13 Status: OrderedCompression [...]
--- OUTSIDE RECORDS SUMMARY | 2022-05-02 12:59 | XMS_ITS | Continuity of Care Document ---
:1945 Author Organization [facility] Address [address] [place] [address]- Care Team Providers Name Role Phone Tatiana MORENO, Cindy Primary Care Physician Encounter [facility] Date(s): 02/13/19 - 06/13/19 [facility] [address] [place] [address]- [facility] Attending Physician: Shelby Jordan NP Admitting Physician: Shelby Jordan NP Referring Physician: Shelby Jordan NP Allergies, Adverse Reactions, Alerts Substance Reaction Severity [...] calf length 20-30 mm Hg ins # [id number], 10/18/13 13:29:38 Start Date: 10/18/13 Status: OrderedCompression [...]
--- OUTSIDE RECORDS SUMMARY | 2022-05-02 13:00 | XMS_ITS | Continuity of Care Document ---
:1945 Author Organization [facility] Address [address] [place] [address]- Care Team Providers Name Role Phone Cindy Simpson MD Primary Care Physician [place] [facility] [place]): [place] - 06/13/19 [facility] [address] [place] [address]- [facility] Attending Physician: Shelby Jordan NP Admitting Physician: [...] calf length 20-30 mm Hg ins # [id number], 10/18/13 13:29:38 Start Date: 10/18/13 Status: OrderedCompression [...]
--- OUTSIDE RECORDS SUMMARY | 2022-05-02 13:00 | XMS_ITS | Continuity of Care Document ---
:1945 Author Organization [facility] Address [address] [place] [address]- Care Team Providers Name Role Phone Tatiana MORENO, Cindy Primary Care [id number] Date(s): 06/21/21 - 07/21/21 [facility] [address] [place] [id number] Attending Physician: Toshia Montero Admitting [...] calf length 20-30 mm Hg ins # [id number], 10/18/13 13:29:38 Start Date: 10/18/13 Status: OrderedCompression [...]
--- OUTSIDE RECORDS SUMMARY | 2022-05-02 13:00 | XMS_ITS | Continuity of Care Document ---
:1945 Author Organization [facility] Address [address] [place] [address]- Care Team Providers Name Role Phone Cindy Simpson MD Primary Care Physician Encounter [facility] [place] Date(s): 06/09/20 - 06/16/20 [facility] [address] [place] [address]- Attending Physician: Roderick Welsh MD Admitting Physician: [...] calf length 20-30 mm Hg ins # [id number], 10/18/13 13:29:38 Start Date: 10/18/13 Status: OrderedCompression [...]
--- OUTSIDE RECORDS SUMMARY | 2022-05-02 13:00 | XMS_ITS | Continuity of Care Document ---
:1945 Author Organization [facility] Address [address] [place] [address]- Care Team Providers Name Role Phone Tatiana MORENO, Cindy Primary Care Physician Encounter [facility] [place] Date(s): 01/02/20 - 02/01/20 [facility] [address] [place] [address]- [facility] Attending Physician: Toshia Montero Admitting Physician: AdmtrToshia [...] calf length 20-30 mm Hg ins # [id number], 10/18/13 13:29:38 Start Date: 10/18/13 Status: OrderedCompression [...]
--- OUTSIDE RECORDS SUMMARY | 2022-05-02 13:00 | XMS_ITS | Continuity of Care Document ---
:1945 Author Organization [facility] Address [address] [place] [address]- Care Team Providers Name Role Phone Tatiana MORENO, Cindy Primary Care Physician Encounter [facility] [place] Date(s): 12/30/20 - 01/29/21 [facility] [address] [place] [address]- Allergies, Adverse Reactions, Alerts Substance Reaction Severity [...] calf length 20-30 mm Hg ins # [id number], 10/18/13 13:29:38 Start Date: 10/18/13 Status: OrderedCompression [...]
--- OUTSIDE RECORDS SUMMARY | 2022-05-02 13:00 | XMS_ITS | Continuity of Care Document ---
:1945 Author Organization [facility] Address [address] [place] [address]- Care Team Providers Name Role Phone Cindy Simpson MD Primary Care Physician Encounter [facility] [place] Date(s): 02/24/20 - 03/02/20 [facility] [address] [place] [address]- [facility] Attending Physician: Roderick Welsh MD Admitting Physician: [...] calf length 20-30 mm Hg ins # [id number], 10/18/13 13:29:38 Start Date: 10/18/13 Status: OrderedCompression [...]
--- OUTSIDE RECORDS SUMMARY | 2022-05-02 13:00 | XMS_ITS | Continuity of Care Document ---
:1945 Author Organization [facility] Address [address] [place] [address]- Care Team Providers Name Role Phone Tatiana MORENO, Cindy Primary Care Physician Encounter [facility] [place] Date(s): 12/23/19 - 01/22/20 [facility] [address] [place] [address]- [facility] Allergies, Adverse Reactions, Alerts Substance Reaction Severity [...] calf length 20-30 mm Hg ins # [id number], 10/18/13 13:29:38 Start Date: 10/18/13 Status: OrderedCompression [...]
--- OUTSIDE RECORDS SUMMARY | 2022-05-02 13:00 | XMS_ITS | Continuity of Care Document ---
:1945 Author Organization [facility] Address [address] [place] [address]- Care Team Providers Name Role Phone Cindy Simpson MD Primary Care Physician Encounter [facility] [place] Date(s): 01/02/20 - 01/09/20 [facility] [address] [place] [address]- [facility] Attending Physician: Shelby Jordan NP Admitting Physician: [...] calf length 20-30 mm Hg ins # [id number], 10/18/13 13:29:38 Start Date: 10/18/13 Status: OrderedCompression [...]
--- OUTSIDE RECORDS SUMMARY | 2022-05-02 13:00 | XMS_ITS | Continuity of Care Document ---
:1944 Author Organization [facility] Address [address] [place] [address]- Care Team Providers Name Role Phone Tatiana MORENO, Cindy Primary [id number] Date(s): 03/25/22 - 04/01/22 [place] [address]- Attending Physician: Roderick Welsh MD Admitting Physician: Roderick Welsh MD Referring Physician: Roderick Welsh MD Allergies, Adverse Reactions, Alerts Substance Reaction [...] calf length 20-30 mm Hg ins # [id number], 10/18/13 13:29:38 Start Date: 10/18/13 Status: OrderedCompression [...] information PersonnelName: Tatiana MORENO, Cindy Address: Address: [address] [place] [id number]
--- OUTSIDE RECORDS SUMMARY | 2022-05-02 13:00 | XMS_ITS | Continuity of Care Document ---
:1945 Author Organization [facility] Address [address] [place] [address]- Care Team Providers Name Role Phone Tatiana MORENO, Cindy Primary Care Physician Encounter [facility] [place] Date(s): 09/24/19 - 01/22/20 [facility] [address] [place] [address]- [facility] Attending Physician: Shelby Jordan NP Admitting Physician: Shelby Jordan NP Allergies, Adverse Reactions, [...] calf length 20-30 mm Hg ins # [id number], 10/18/13 13:29:38 Start Date: 10/18/13 Status: OrderedCompression [...]
--- OUTSIDE RECORDS SUMMARY | 2022-05-02 13:00 | XMS_ITS | Continuity of Care Document ---
:1945 Author Organization [facility] Address [address] [place] [address]- Care Team Providers Name Role Phone Tatiana MORENO, Cindy Primary Care Physician Encounter [facility] [id number] Date(s): 03/29/22 - 04/05/22 [facility] [address] [place] [id number] Attending Physician: Roderick Welsh MD Admitting Physician: Roderick Welsh MD Allergies, Adverse Reactions, [...] calf length 20-30 mm Hg ins # [id number], 10/18/13 13:29:38 Start Date: 10/18/13 Status: OrderedCompression [...] Confirmed Active Venous (peripheral) Confirmed Active insufficiency Vital Signs Most recent to oldest [Reference Range]: 1 Height 152.4 cm (03/29/22 2:36 PM) Weight 77.58 kg (03/29/22 2:36 PM) Oxygen Saturation [94-100 %] 98 % (03/29/22 2:36 PM) Pulse Rate [55-90 bpm] 92 bpm *H* (03/29/22 2:36 PM) Body Mass Index [18.5-24.99 kg/m2] 33.4 kg/m2 *>HHI* (03/29/22 2:36 PM) Blood Pressure [90-138/55-84 mm Hg] 158/78 mm Hg *H* (03/29/22 2:36 PM) Mode of Delivery (Oxygen) Room air (03/29/22 2:36 PM) Blood pressure sites Arm, left (03/29/22 2:36 PM) Weight Obtained Via Patient/family stated (03/29/22 2:36 PM) Social History Social History Type Response Smoking Status Former smoker entered on: 09/23/14 Sex Patient Care team information PersonnelName: Tatiana MORENO, Cindy Address: Address: [address] [place] [id number]
--- OUTSIDE RECORDS SUMMARY | 2022-05-02 13:00 | XMS_ITS | Continuity of Care Document ---
:1945 Author Organization [facility] Address [address] [place] [phone]- Care Team Providers Name Role Phone Tatiana MORENO, Cindy Primary Care Phys[id number] Date(s): 03/03/22 - 03/30/22 [facility] [address] [place] [id number] Attending Physician: Roderick Welsh MD Admitting Physician: [...] calf length 20-30 mm Hg ins # [id number], 10/18/13 13:29:38 Start Date: 10/18/13 Status: OrderedCompression [...] information PersonnelName: Tatiana MORENO, Cindy Address: Address: [address] [place] [address]
[2022-05-02 13:18] LABS: Alanine Aminotransferase 23 U/L (0-31); Albumin Level 3.7 g/dL (3.5-5.0); Alkaline Phosphatase 83 U/L (39-117); Anion Gap 14 (12-20); Aspartate Amino Transferase 27 U/L (5-31); Bilirubin Total 0.7 mg/dL (0.0-1.0); Blood Urea Nitrogen 17 mg/dL (9-16); Calcium 8.6 mg/dL (8.4-10.2); Carbon Dioxide 23 mmol/L (22-29); Chloride 107 mmol/L (96-108); Creatinine Clr Calc Pharmacy 50.9; Estimated Glomerular Filt Rate 59; Glucose Random 109 mg/dL (60-115); Magnesium 2.1 mg/dL (1.6-2.6); Potassium 4.3 mmol/L (3.3-5.1); Sodium 140 mmol/L (135-145); Total Protein 6.7 g/dL (6.5-8.0)
[2022-05-02 13:20] LABS: B Type Natriuretic Peptide 141 pg/mL (<100)
[2022-05-02 13:20] LABS: Troponin-I High Sensitivity 3.5 ng/L (<3.5-17.0)
[2022-05-02 13:29] LABS: Influenza A PCR POSITIVE (Negative); Influenza B PCR NEGATIVE (Negative); Resp Syncy Virus RNA Qual PCR NEGATIVE (Negative); SARS COV2 PCR INHOUSE NEGATIVE (Negative)
== END 2022-05-02 14:15 | disposition home or self-care (01) ==
PROVIDERS: Physician Assistant Medical; Emergency Provider Emergency Medicine; PCP Internal Medicine
DX: J10.1 Influenza due to other identified influenza virus with other respiratory manifestations (principal); I10 Essential (primary) hypertension; Z85.118 Personal history of other malignant neoplasm of bronchus and lung; Z20.822 Contact with and (suspected) exposure to COVID-19
CPT/HCPCS: 0241U; 36415; 71046; 80053; 83735; 83880; 84484; 85025; 93005; 99283

== ENCOUNTER 2023-11-05 20:12 | Emergency (ER) | payer MEDICARE, SELFPAY ==
[2023-11-05 20:15] VITALS: BP 131/113; PULSE 84; RESP 18; TEMP 36.8; O2SAT 97; BMI 34.4
[2023-11-05 21:43] LABS: MANUAL DIFF FLAG NO
[2023-11-05 21:45] LABS: Basophils Percent Auto 0.5 % (0-2); Eosinophils Absolute Auto 0.1 X10*3/uL (0.0-0.4); Eosinophils Percent Auto 1.9 % (0-4); Hemoglobin 13.2 g/dl (12.0-16.0); Imm Gran Abs Auto 0.02 X10*3/uL (0.00-0.03); Imm Gran Pct Auto 0.3 % (0.0-0.4); Lymphocytes Absolute Auto 2.8 X10*3/uL (1.2-4.9); Lymphocytes Percent Auto 36.8 % (20-40); Mean Corpuscular HGB Conc 34.7 g/dl (31.0-35.0); Mean Corpuscular Hemoglobin 32.5 pg (27.0-33.0); Mean Corpuscular Volume 93.6 fL (80.0-98.0); Mean Platelet Volume 9.3 fL (9.4-12.3); Monocytes Absolute Auto 0.6 X10*3/uL (0.1-1.2); Monocytes Percent Auto 8.1 % (2-11); Neutrophils Absolute Auto 3.9 x10*3/uL (2.0-8.3); Neutrophils Percent Auto 52.4 % (45-73); Platelet Count 248 X10*3/uL (160-400); Red Blood Count 4.06 X10*6/uL (4.20-5.50); Red Cell Distribution Width 11.9 % (11.0-16.0); White Blood Count 7.5 X10*3/uL (4.8-10.8)
[2023-11-05 21:51] LABS: INTERNATIONAL NORM RATIO 1.1 (0.9-1.1); Prothrombin Time 12.8 SEC (11.1-13.3)
[2023-11-05 21:58] LABS: Alanine Aminotransferase 15 U/L (0-31); Albumin Level 3.9 g/dL (3.5-5.0); Alkaline Phosphatase 76 U/L (39-117); Anion Gap 13 (12-20); Aspartate Amino Transferase 21 U/L (5-31); Bilirubin Total 0.5 mg/dL (0.0-1.0); Blood Urea Nitrogen 26 mg/dL (9-16); Calcium 9.6 mg/dL (8.4-10.2); Carbon Dioxide 23 mmol/L (22-29); Chloride 108 mmol/L (96-108); Creatinine Clr Calc Pharmacy 39.1; Estimated Glomerular Filt Rate 48; Glucose Random 100 mg/dL (60-115); Potassium 4.3 mmol/L (3.3-5.1); Sodium 140 mmol/L (135-145); Total Protein 7.1 g/dL (6.5-8.0)
--- NOTE | 2023-11-06 01:31 | ED_ITS ---
HPI - Extremity Problem General Chief complaint: Extremity Injury, Lower Stated complaint: persistent groin pain Time Seen by Provider: 11/06/23 00:49 Source: patient Mode of arrival: ambulatory Limitations: no limitations History of Present Illness HPI Narrative: Pain in right groin area for last 2 days apparently apparently was pushing a cart at the [employer] entered in the noticed pain in the right groin area which increases on ambulation does have history of peripheral vascular disease family's concern no abdominal pain no nausea no vomiting Related Data Previous Rx's ?Medication ?Instructions ?Recorded benzonatate 100 mg capsule 100 mg PO BID PRN cough 7 days #14 05/02/22 caps Allergies Allergy/AdvReac Type Severity Reaction Status Date / Time Iodinated Contrast Media Allergy Severe RED PALMS Verified 11/05/23 20:20 [IV Dye, Iodine Containing] SEASONAL ALLERGIES Allergy Unknown RUNNY NOSE Uncoded 02/27/20 14:44 Review of Systems 2 Review of Systems: Yes all other systems are reviewed and are negative [facility] Past Medical History Medical History Blind right eye History of prediabetes HTN (hypertension) Colitis Surgical History History of cholecystectomy S/P partial lobectomy of lung H/O tubal ligation Social History Social History Advance Directives: Yes Advance Directives Information Provided: No Advance Directives on File: No Do you have a plan to hurt others: No Plan Physical Exam 2 Vital Signs: Vital Signs: Last Vital Signs Temp 98.2 F 11/06/23 02:01 Pulse 83 11/06/23 02:01 Resp 20 11/06/23 02:01 BP 196/94 H 11/06/23 02:01 Pulse Ox 98 11/06/23 02:01 O2 Del Method Room Air 11/06/23 02:01 BMI result Body Mass Index 34.4 Appearance: Alert. Oriented X3. No acute distress. Neck: Normal inspection. Neck supple. CVS: Normal heart rate and rhythm. Pulses normal. Respiratory: No respiratory distress. Equal air entry bilateral, no wheezing/rales/rhonchi Abdomen: Soft and nontender. Bowel sounds are present, no mass palpable, no CVA tenderness Skin: Skin warm and dry. Normal skin color. Normal skin turgor. Extremities: No lower extremity edema. No calf tenderness pain in the right groin muscle area increases on adduction and flexion good femoral artery pulsation good femoral artery blood flow all the way to popliteal to dorsalis pedis confirmed by arterial Doppler by myself no skin color change Neuro: Oriented X 3. No motor deficit. No sensory deficit.No cerebellar signs , cranial nerves II-XII intact Medications Administered Discontinued Medications Generic Name Dose Route Start Last Admin Trade Name Grzegorz PRN Reason Stop Dose Admin Acetaminophen 650 mg 11/06/23 01:32 11/06/23 01:52 Acetaminophen 325 Mg Tablet PO 11/06/23 01:33 650 mg ONCE ONE Administration Cyclobenzaprine HCl 5 mg 11/06/23 01:32 11/06/23 01:51 Cyclobenzaprine Hcl 5 Mg Tablet PO 11/06/23 01:33 Not Given ONCE ONE Lisinopril 20 mg 11/06/23 01:54 11/06/23 01:56 Lisinopril 20 Mg Tablet PO 11/06/23 01:55 20 mg ONCE ONE Administration Protocol Medical Decision Making Medical Decision Making MDM Narrative: Patient is clinically right groin strain Doppler positive for blood flow in the femoral popliteal and dorsalis pedis palpable pulses no skin discoloration will discharge patient home for supportive treatment patient feel better after pain medication Differential Diagnosis Differential Diagnoses: The differential diagnosis associated with the presentation includes Lab Data MDM Lab Attestation statement: I reviewed the patient's lab results. 11/05/23 21:36 11/05/23 21:36 Labs: Lab Results 11/05/23 Range/Units 21:36 WBC 7.5 (4.8-10.8) X10*3/uL RBC 4.06 L (4.20-5.50) X10*6/uL Hgb 13.2 (12.0-16.0) g/dl Hct 38.0 (37.0-47.0) % MCV 93.6 (80.0-98.0) fL MCH 32.5 (27.0-33.0) pg MCHC 34.7 (31.0-35.0) g/dl RDW 11.9 (11.0-16.0) % Plt Count 248 (160-400) X10*3/uL MPV 9.3 L (9.4-12.3) fL Immature Gran % (Auto) 0.3 (0.0-0.4) % Neut % (Auto) 52.4 (45-73) % Lymph % (Auto) 36.8 (20-40) % Lanier % (Auto) 8.1 (2-11) % Eos % (Auto) 1.9 (0-4) % Baso % (Auto) 0.5 (0-2) % Lymph # (Auto) 2.8 (1.2-4.9) X10*3/uL Lanier # (Auto) 0.6 (0.1-1.2) X10*3/uL Eos # (Auto) 0.1 (0.0-0.4) X10*3/uL Baso # (Auto) 0.0 (0.0-0.2) X10*3/uL Abs Immat Gran (auto) 0.02 (0.00-0.03) X10*3/uL Absolute Neuts (auto) 3.9 (2.0-8.3) x10*3/uL Absolute Nucleated RBC 0.000 (0.0-0.012) X10*3/uL Nucleated RBC % (auto) 0.0 (0.0-0.2) /100WBC PT 12.8 (11.1-13.3) SEC INR 1.1 (0.9-1.1) Sodium 140 (135-145) mmol/L Potassium 4.3 (3.3-5.1) mmol/L Chloride 108 (96-108) mmol/L Carbon Dioxide 23 (22-29) mmol/L Anion Gap 13 (12-20) BUN 26 H (9-16) mg/dL Creatinine 1.09 (0.5-1.4) mg/dL Estim Creat Clear Calc 39.1 Estimated GFR 48 Random Glucose 100 (60-115) mg/dL Calcium 9.6 D (8.4-10.2) mg/dL Total Bilirubin 0.5 (0.0-1.0) mg/dL AST 21 (5-31) U/L ALT 15 (0-31) U/L Alkaline Phosphatase 76 (39-117) U/L Total Protein 7.1 (6.5-8.0) g/dL Albumin 3.9 (3.5-5.0) g/dL Discharge Plan Discharge Clinical Impression: Strain of right groin Patient Disposition: Home, Self-Care Instructions: Groin Strain (ED) Additional Instructions: Take ibuprofen/Tylenol for pain Ice pack your pain in right groin is likely from the right groin muscle strain no signs of vascular blockage Prescriptions: No Action benzonatate 100 mg capsule 100 mg PO BID PRN (Reason: cough) 7 Days Qty: 14 0RF Interventions: ED Discharge Assessment Last Done: 11/06/23 02:01 Discharge Date/Time: 11/06/23 02:03 Print Language: Armenian
[2023-11-06 01:48] VITALS: BP 196/94; PULSE 88; RESP 20; TEMP 36.8; O2SAT 98
[2023-11-06] MEDS: Acetaminophen 325 MG TABLET 650 MG PO (01:52)
[2023-11-06 01:56] VITALS: BP 196/94
[2023-11-06] MEDS: lisinopriL 20 MG TABLET PO (01:56)
[2023-11-06 02:01] VITALS: BP 196/94; PULSE 83; RESP 20; TEMP 36.8; O2SAT 98
== END 2023-11-06 02:03 | disposition home or self-care (01) ==
PROVIDERS: Emergency Provider Internal Medicine; PCP Internal Medicine
DX: S39.011A Strain of muscle, fascia and tendon of abdomen, initial encounter (principal); I10 Essential (primary) hypertension; X58.XXXA Exposure to other specified factors, initial encounter; Y93.9 Activity, unspecified; Y92.9 Unspecified place or not applicable; Y99.9 Unspecified external cause status
CPT/HCPCS: 36415; 80053; 85025; 85610; 99283; 99284

== ENCOUNTER 2023-11-09 17:21 | Emergency (ER) | payer OTHER, SELFPAY ==
[2023-11-09 17:35] VITALS: BP 177/89; BP 194/78; PULSE 77; PULSE 82; RESP 20; TEMP 36.5; O2SAT 97; BMI 28.9
--- NOTE | 2023-11-09 17:56 | ECG_ITS ---
Test Reason : DIZZINESS Blood Pressure : / mmHG Vent. Rate : 073 BPM Atrial Rate : 073 BPM P-R Int : 168 ms QRS Dur : 068 ms QT Int : 388 ms P-R-T Axes : 084 014 049 degrees QTc Int : 427 ms Normal sinus rhythm Normal ECG When compared with ECG of 02-MAY-2022 12:52, No significant change was found Referred By: Tete Nolasco Electronically Signed By:DAREN ROBERT
--- NOTE | 2023-11-09 17:58 | ED_ITS ---
HPI - Dizziness General Chief Complaint: Dizziness Stated Complaint: HYPERTENSION Time Seen by Provider: 11/09/23 17:32 Source: patient, family and EMS Mode of arrival: EMS Limitations: no limitations History of Present Illness HPI Narrative: Patient is a 78-year-old female who presents emergency room for evaluation with her daughter. She states that today when she was walking from the bathroom she began feeling dizzy and her arms felt shaky while using her walker. She sat down and began dry heaving, reports that she coughed out a small amount of phlegm which was typical for her, white in color, reports a history of COPD and lobectomy secondary who lung cancer. When her daughter arrived to her home to bring her to [facility] she had told her that she was feeling dizzy. Daughter checked her blood pressure which was soon after the dry heaving episode and blood pressure was 207/91 with an automated arm cuff. Daughter expresses concern because they were in the emergency department a few days ago for evaluation of right groin pain which was thought to be secondary to a strain, and at that time her blood pressure was elevated. She has been on lisinopril 40 mg daily and metoprolol 12.5 mg twice daily for quite some time without issues with her blood pressure. She has been keeping track of her blood pressure readings twice daily since her most recent emergency department visit, readings have been under 160 systolic. At this time she continues to report dizziness with position change. Denies headache, vision changes, ear pain, neck pain, chest pain, shortness of breath, difficulty breathing, numbness or tingling of the extremities, nausea, vomiting. Related Data Previous Rx's ?Medication ?Instructions ?Recorded benzonatate 100 mg capsule 100 mg PO BID PRN cough 7 days #14 05/02/22 caps meclizine 25 mg tablet 25 mg PO BID PRN dizziness #20 tabs 11/09/23 ondansetron 4 mg disintegrating 4 mg PO Q8H PRN nausea and 11/09/23 tablet vomiting #10 tabs Allergies Allergy/AdvReac Type Severity Reaction Status Date / Time Iodinated Contrast Media Allergy Severe RED PALMS Verified 11/09/23 17:39 [IV Dye, Iodine Containing] SEASONAL ALLERGIES Allergy Unknown RUNNY NOSE Uncoded 02/27/20 14:44 Review of Systems 2 Review of Systems: Yes all other systems are reviewed and are negative PMFSH Past Medical History Attestation statement: The following information was validated with the patient. Source: old records reviewed Medical History Blind right eye History of prediabetes HTN (hypertension) Colitis Surgical History History of cholecystectomy S/P partial lobectomy of lung H/O tubal ligation Social History Social History Advance Directives: Yes Advance Directives Information Provided: No Advance Directives on File: No Do you have a plan to hurt others: No Plan Physical Exam 2 Vital Signs: Vital Signs: Last Vital Signs Temp 98.3 F 11/09/23 23:26 Pulse 75 11/09/23 23:26 Resp 16 11/09/23 23:26 BP 128/62 11/09/23 23:26 Pulse Ox 97 11/09/23 23:26 O2 Del Method Room Air 11/09/23 23:26 BMI result Body Mass Index 28.9 Appearance: Alert.?Oriented to person, place and time. No acute distress.?Normal affect. Eyes: Pupils equal, round and reactive to light.? EOMI. No nystagmus. ENT: Pharynx normal.?? Neck: Normal inspection.? Neck supple.? Full range of motion. ? CVS: Heart sounds normal. Normal heart rate and rhythm.? Pulses normal.?? Respiratory: No respiratory distress.? Lung sounds clear to auscultation bilaterally?? Abdomen: Soft and non-tender. Normoactive bowel sounds. No pulsatile mass.?? Skin: Skin warm and dry.? Normal skin color.? ? Extremities: No lower extremity edema.? No calf ttp? Neuro: Moves all extremities spontaneously. Sensation intact bilaterally. [id number] testing normal bilaterally. CN II-XII intact. No focal neuro deficits. Ambulates with normal steady gait. NIH Stroke Scale Internal: Initial- Upon Arrival Level of Consciousness: Alert Level of Consciousness Questions: Answers both questions correctly Level of Consciousness Commands: Performs both tasks correctly Best Gaze: Normal Visual: No visual loss Facial Palsy: Normal Motor Arm (Right): No drift Motor Arm (Left): No drift Motor Leg (Right): No drift Motor Leg (Left): No drift Limb Ataxia: Absent Sensory: Normal Best Language: No aphasia Dysarthia: Normal Extinction and Inattention: No abnormality Score: 0 Course Reevaluation(s) Reevaluation #1: Nursing staff attempted to obtain orthostatic vital signs, upon position change from supine to sitting she began vomiting. Patient to receive Zofran 4 mg, will trial management with meclizine. Time: 18:22 Reevaluation #2: CBC is without leukocytosis, anemia, thrombocytosis or thrombocytopenia. Renal function at baseline. LFTs within normal range. High sensitive troponin detectable at 4, EKG reveals a normal sinus rhythm with ventricular rate of 73, QTC 427, no ST elevation, no ST depression, no acute ischemic findings and appears unchanged when compared to prior EKG in April of 2022. Have lower suspicion for ACS as etiology for symptoms at this time. Viral panel is negative. Time: 19:18 Reevaluation #3: No orthostatic hypotension. Symptoms of dizziness nausea vomiting resolved after receiving Zofran and meclizine. Suspect BPPV. Patient feels well and is requesting discharge home checked feel is reasonable at this time. Discussed strict return precautions. All questions answered. Stable for discharge. Medications Administered Discontinued Medications Generic Name Dose Route Start Last Admin Trade Name Freq PRN Reason Stop Dose Admin Meclizine HCl 25 mg 11/09/23 18:21 11/09/23 18:35 Meclizine Hcl 25 Mg Tablet PO 11/09/23 18:22 25 mg ONCE ONE Administration Ondansetron HCl 4 mg 11/09/23 18:21 11/09/23 18:35 Ondansetron Hcl 4 Mg/2 Ml Vial IVPUSH 11/09/23 18:22 4 mg ONCE ONE Administration Medical Decision Making Medical Decision Making MDM Narrative: Patient is a 78-year-old female with past medical history of hypertension, colitis, partial lobectomy who presents emergency department for evaluation of dizziness and associated hypertensive reading at home today as per HPI. Had an at length discussion with patient and family about proper assessment of blood pressure, blood pressure on arrival to emergency department 177/, advised against obtaining blood pressure readings during acute episode such as with dry heaving. As she is currently still experiencing dizziness associated with position change/head movement, I suspect this may be BPPV, plan to obtain orthostatic vital signs in addition to CBC to evaluate for leukocytosis/ anemia, CMP and lipase to evaluate for abnormal electrolytes /abnormal renal function/ abnormal hepatic/biliary function, EKG and troponin to evaluate for ischemia/ACS and Urinalysis. Differential Diagnosis Differential Diagnoses: The differential diagnosis associated with the presentation includes (Hypertension, orthostatic hypotension, BPPV, vasovagal response, carotid dissection, Cerebellar function test normal, lower suspicion for CVA) Admission/Observation Consideration of admission/observation: Escalation of care including admission/observation considered Lab Data MDM Lab Attestation statement: I reviewed the patient's lab results. 11/09/23 18:26 11/09/23 18:26 Labs: Lab Results 11/09/23 Range/Units 18:26 WBC 7.5 (4.8-10.8) X10*3/uL RBC 4.08 L (4.20-5.50) X10*6/uL Hgb 13.3 (12.0-16.0) g/dl Hct 38.2 (37.0-47.0) % MCV 93.6 (80.0-98.0) fL MCH 32.6 (27.0-33.0) pg MCHC 34.8 (31.0-35.0) g/dl RDW 11.9 (11.0-16.0) % Plt Count 248 (160-400) X10*3/uL MPV 10.0 (9.4-12.3) fL Immature Gran % (Auto) 0.4 (0.0-0.4) % Neut % (Auto) 62.8 (45-73) % Lymph % (Auto) 26.9 (20-40) % Sandoval % (Auto) 8.3 (2-11) % Eos % (Auto) 1.2 (0-4) % Baso % (Auto) 0.4 (0-2) % Lymph # (Auto) 2.0 (1.2-4.9) X10*3/uL Sandoval # (Auto) 0.6 (0.1-1.2) X10*3/uL Eos # (Auto) 0.1 (0.0-0.4) X10*3/uL Baso # (Auto) 0.0 (0.0-0.2) X10*3/uL Abs Immat Gran (auto) 0.03 (0.00-0.03) X10*3/uL Absolute Neuts (auto) 4.7 (2.0-8.3) x10*3/uL Absolute Nucleated RBC 0.000 (0.0-0.012) X10*3/uL Nucleated RBC % (auto) 0.0 (0.0-0.2) /100WBC PT 13.0 (11.1-13.3) SEC INR 1.1 (0.9-1.1) Sodium 140 (135-145) mmol/L Potassium 4.2 (3.3-5.1) mmol/L Chloride 110 H (96-108) mmol/L Carbon Dioxide 21 L (22-29) mmol/L Anion Gap 13 (12-20) BUN 27 H (9-16) mg/dL Creatinine 1.03 (0.5-1.4) mg/dL Estim Creat Clear Calc 44.3 Estimated GFR 52 Random Glucose 112 (60-115) mg/dL Calcium 9.3 (8.4-10.2) mg/dL Magnesium 2.2 (1.6-2.6) mg/dL Total Bilirubin 0.4 (0.0-1.0) mg/dL AST 20 (5-31) U/L ALT 15 (0-31) U/L Alkaline Phosphatase 80 (39-117) U/L Troponin I High Sens 4.0 (<3.5-17.0) ng/L Total Protein 6.7 (6.5-8.0) g/dL Albumin 3.8 (3.5-5.0) g/dL Influenza Type A (PCR) NEGATIVE (Negative) Influenza Type B (PCR) NEGATIVE (Negative) RSV RNA Qual (PCR) NEGATIVE (Negative) SARS-CoV-2 RNA (RT-PCR) NEGATIVE (Negative) Independent Interpretation I performed an independent interpretation of an: EKG Independent Historian Clinical information obtained from an independent historian. History obtained from or confirmed by: EMS Discharge Plan Discharge Clinical Impression: Benign paroxysmal positional vertigo Patient Disposition: Home, Self-Care Instructions: Vertigo (ED) Prescriptions: New meclizine 25 mg tablet 25 mg PO BID PRN (Reason: dizziness) Qty: 20 0RF ondansetron 4 mg tablet,disintegrating 4 mg PO Q8H PRN (Reason: nausea and vomiting) Qty: 10 0RF No Action benzonatate 100 mg capsule 100 mg PO BID PRN (Reason: cough) 7 Days Qty: 14 0RF Referrals: Cindy Simpson MD [Primary Care Provider] - Interventions: ED Discharge Assessment Last Done: 11/09/23 23:26 Discharge Date/Time: 11/09/23 23:27 Print Language: Japanese
[2023-11-09 18:13] VITALS: BP 176/80; PULSE 76
[2023-11-09 18:14] VITALS: BP 184/88; PULSE 80
[2023-11-09 18:32] LABS: MANUAL DIFF FLAG NO
[2023-11-09] MEDS: ondansetron HCL 4 MG/2 ML VIAL IVPUSH (18:35)
[2023-11-09] MEDS: Meclizine HCl 25 MG TABLET PO (18:35)
[2023-11-09 18:44] LABS: Basophils Percent Auto 0.4 % (0-2); Eosinophils Absolute Auto 0.1 X10*3/uL (0.0-0.4); Eosinophils Percent Auto 1.2 % (0-4); Hematocrit 38.2 % (37.0-47.0); Hemoglobin 13.3 g/dl (12.0-16.0); Imm Gran Abs Auto 0.03 X10*3/uL (0.00-0.03); Imm Gran Pct Auto 0.4 % (0.0-0.4); Lymphocytes Percent Auto 26.9 % (20-40); Mean Corpuscular HGB Conc 34.8 g/dl (31.0-35.0); Mean Corpuscular Hemoglobin 32.6 pg (27.0-33.0); Mean Corpuscular Volume 93.6 fL (80.0-98.0); Monocytes Absolute Auto 0.6 X10*3/uL (0.1-1.2); Monocytes Percent Auto 8.3 % (2-11); Neutrophils Absolute Auto 4.7 x10*3/uL (2.0-8.3); Neutrophils Percent Auto 62.8 % (45-73); Platelet Count 248 X10*3/uL (160-400); Red Blood Count 4.08 X10*6/uL (4.20-5.50); Red Cell Distribution Width 11.9 % (11.0-16.0); White Blood Count 7.5 X10*3/uL (4.8-10.8)
[2023-11-09 18:47] LABS: Alanine Aminotransferase 15 U/L (0-31); Albumin Level 3.8 g/dL (3.5-5.0); Alkaline Phosphatase 80 U/L (39-117); Anion Gap 13 (12-20); Aspartate Amino Transferase 20 U/L (5-31); Bilirubin Total 0.4 mg/dL (0.0-1.0); Blood Urea Nitrogen 27 mg/dL (9-16); Calcium 9.3 mg/dL (8.4-10.2); Carbon Dioxide 21 mmol/L (22-29); Chloride 110 mmol/L (96-108); Creatinine Clr Calc Pharmacy 44.3; Estimated Glomerular Filt Rate 52; Glucose Random 112 mg/dL (60-115); Magnesium 2.2 mg/dL (1.6-2.6); Potassium 4.2 mmol/L (3.3-5.1); Sodium 140 mmol/L (135-145); Total Protein 6.7 g/dL (6.5-8.0)
[2023-11-09 19:10] LABS: Influenza A PCR NEGATIVE (Negative); Influenza B PCR NEGATIVE (Negative); Resp Syncy Virus RNA Qual PCR NEGATIVE (Negative); SARS COV2 PCR INHOUSE NEGATIVE (Negative)
[2023-11-09 19:30] LABS: INTERNATIONAL NORM RATIO 1.1 (0.9-1.1)
[2023-11-09 19:56] VITALS: BP 159/77; BP 175/86; BP 187/90; PULSE 76; PULSE 80; PULSE 85
[2023-11-09 22:06] VITALS: BP 114/65; PULSE 85; RESP 16; TEMP 36.6; O2SAT 97
[2023-11-09 23:26] VITALS: BP 128/62; PULSE 75; RESP 16; TEMP 36.8; O2SAT 97
== END 2023-11-09 23:27 | disposition home or self-care (01) ==
PROVIDERS: Nurse Practitioner Family; Emergency Provider Emergency Medicine; PCP Internal Medicine
DX: H81.10 Benign paroxysmal vertigo, unspecified ear (principal); I10 Essential (primary) hypertension; J44.9 Chronic obstructive pulmonary disease, unspecified; Z85.118 Personal history of other malignant neoplasm of bronchus and lung; Z79.899 Other long term (current) drug therapy; Z03.818 Encounter for observation for suspected exposure to other biological agents ruled out
CPT/HCPCS: 0241U; 36415; 80053; 83735; 84484; 85025; 85610; 93005; 96374; 99284; 99285; J2405

== ENCOUNTER → 2023-11-09 17:56 | Outpatient (BNV) | payer OTHER, SELFPAY | PROVIDERS: Emergency Provider Emergency Medicine; PCP Internal Medicine; Visit Provider Internal Medicine | DX: R42 Dizziness and giddiness (principal) | CPT/HCPCS: 93010 ==

== ENCOUNTER 2025-05-30 08:01 | Emergency (ER) | payer OTHER, SELFPAY ==
--- OUTSIDE RECORDS SUMMARY | 2025-03-07 06:00 | XMS_ITS ---
Author Organization [facility] Address [address] [place] [id number] Care Team Providers Care Car Audio Installer Name Role Phone Tatiana MORENO, Cindy Wolf Primary Care Provider Unav ailable Jacquie Acevedo Unavailable [phone] Alford Encounters Encounter Location Date Provider Diagnosis [address] [id number] 03/07/2025 Jacquie Acevedo Plan Of Treatment Next Appt Details Provider Name:Jacquie wesley, 07/18/2025 09:00:00 AM, [address] [place] [address], [phone], Provider Name:Jacquie wesley, 09/19/2025 09:00:00 AM, [address] [place] [address], [phone], Progress Notes * Dominick BENNETTaDOB: 5 (79 yo F)Acc No.[id number]:03/07/2025 Progress Note Patient: Samantha MOORE Bonnie Provider: Samantha Acevedo DPM :1945 A ge:79 Y S ex:Female Date:03/07/2025 Address:[address] [place] [address], [address] [id number] Pcp:Cindy Simpson MD Subjective: * Chief Complaints: * [address] Alford. * Medical History: Objective: * Vitals: Assessment: Plan: * Treatment: * Images: * The named appointment provid er may or may not be the originator of this progress note, and it is not deemed complete until electronically signed by the appointment provider. Sign off status: Pending * Provider: Samantha Acevedo DPM Date: 0 03/07/2025 Generated for Germaine morales/Luis/Maricruz on: 07/31/2024 09:31 AM EST
[2025-05-30] VITALS (7 sets, daily range): BP systolic 129–166; BP diastolic 70–87; PULSE 81–105; RESP 15–18; TEMP -17.7–36.4; O2SAT 96–97; BMI 33.0
--- NOTE | ~2025-05-30 | XR_ITS ---
EXAMINATION: XR CHEST 2 VIEWS HISTORY: chest pain COMPARISON: Paracent is made with the prior examination dated 05/02/2022. FINDINGS: AP and lateral views of the chest are submitted. Postsurgical changes are again noted on the left with volume loss and shift of the cardiomediastinal silhouette to the left. There are no new airspace opacities. There is no pleural effusion, pneumothorax, or pulmonary vascular congestion. The heart is normal in size. The aorta is calcified. There is degenerative disc disease of the spine. XR/XR chest 2V IMPRESSION: Post surgical changes on the left. No acute cardiopulmonary abnormality. Electronically signed by: Davon Hernandez MD 05/30/2025 08:38 AM EST
--- NOTE | ~2025-05-30 | CT_ITS ---
EXAMINATION: CT ANGIOGRAM CHEST CLINICAL INFORMATION: Status post fall. Left-sided pain. COMPARISON: December 04, 2016. TECHNIQUE: Multiple axial images were obtained through the chest after the administration of 85 mL of Omnipaque 350 intravenous contrast. Extensive vascular post-processing including two-dimensional and three-dimensional reformatted images were created and reviewed on an independent workstation. SmartPrep technique. This CT examination was performed using dose optimization techniques as appropriate, variously including the following: *Automated exposure control *Adjustment of mA and/or kV according to patient size (this includes techniques or standardized protocols for targeted exams where dose is matched to indication/reason for exam; i.e. extremities or head) *Use of iterative reconstruction technique DLP: 218.64+8.51 mGy-cm FINDINGS: Main pulmonary artery or its main left and right branches and subsegmental pulmonary artery branches are patent without intraluminal filling defects. No aneurysm or dissection, thoracic aorta. No lung contusion. No IV contrast extravasation from the aorta. No hemomediastinum. No hemothorax. No pneumothorax. No pneumomediastinum. No hemopericardium. Pulmonary patchy groundglass. Calcified plaque thoracic aorta wall and its main branches and the coronary arteries. No gross mediastinal lymphadenopathy. No acute airspace disease. No gross pulmonary nodules. Old traumatic deformities in the ribs of the left hemithorax. No acute fracture. Multilevel spondylosis without acute fracture or trauma-related listhesis. Sternum is intact. No acute fracture in the scapula. CT/CT abdomen pelvis w IV con IMPRESSION: No acute intrathoracic traumatic injury or acute fracture. No acute pulmonary artery emboli. No aneurysm or dissection, thoracic aorta. Fleischner guidelines were followed. EXAMINATION: CT ABDOMEN AND PELVIS WITH CONTRAST CLINICAL INFORMATION: Status post fall. Left-sided pain. COMPARISON: October 05, 2020. TECHNIQUE: Multidetector volumetric images were obtained from the superior aspect of the liver through the pubic symphysis following administration 85 mL of Omnipaque 350 intravenous contrast. Sagittal and coronal reformatted images were obtained on the technologist's workstation. Oral contrast: No This CT examination was performed using dose optimization techniques as appropriate, variously including the following: *Automated exposure control *Adjustment of mA and/or kV according to patient size (this includes techniques or standardized protocols for targeted exams where dose is matched to indication/reason for exam; i.e. extremities or head) *Use of iterative reconstruction technique DLP: 526.56 mGy-cm FINDINGS: LIVER, GALLBLADDER, AND BILIARY TREE: Liver is intact. No focal mass. No peripancreatic fluid collection. Main portal veins and hepatic veins are patent. Status post cholecystectomy. Common bile duct measures 7 mm. PANCREAS: Intact. No peripancreatic fluid collections. No main pancreatic ductal dilatation. Fatty pattern. SPLEEN: Intact. No focal lesion. No perisplenic fluid collection. ADRENAL GLANDS: No nodular lesions. KIDNEYS AND URETERS: Intact. No hydronephrosis. No gross nephrolithiasis. No focal mass. Subcentimeter cystic lesion right kidney. Extrarenal pelvises. No dilatation of the ureters. BLADDER: There are a few. GASTROINTESTINAL TRACT: Number diverticula, sigmoid colon. No intestinal obstruction pattern. No ascites. No hemoperitoneum. No pneumoperitoneum. No mesenteric hematoma. No retroperitoneal hematoma. No pneumatosis intestinalis. Small hiatal hernia.. ABDOMINAL WALL: There is distal abdominal rectus muscles. LYMPH NODES: No mesenteric or retroperitoneal lymphadenopathy. VASCULAR: Calcified plaques without aneurysm or dissection, abdominal aorta. No IV contrast extravasation. Calcified plaque in the mesenteric arteries and the splenic artery. PELVIC VISCERA: Absent/surgical removal. OSSEOUS STRUCTURES: Multilevel thoracolumbar spondylosis without acute fracture or trauma-related listhesis. Superior endplate compression deformity representing 40% volume loss at L1. Multilevel Schmorl nodes in vacuum phenomenon at the intervertebral disc spaces. Bony pelvis is intact. Subchondral cyst formation in the femoral heads. Degenerative changes both coxofemoral joints. Coxofemoral joints are intact with normal alignment. IMPRESSION: No intra-abdominal pelvic solid organ injury or vascular injury. No acute fracture. Fleischner guidelines were followed. Electronically signed by: Saúl Gonzalez MD 05/30/2025 12:46 PM EST
--- NOTE | 2025-05-30 08:10 | ECG_ITS ---
Test Reason : chest pressure Blood Pressure : */* mmHG Vent. Rate : 84 BPM Atrial Rate : 84 BPM P-R Int : 158 ms QRS Dur : 62 ms QT Int : 364 ms P-R-T Axes : 94 5 25 degrees QTcB Int : 430 ms Normal sinus rhythm Low voltage QRS Borderline ECG When compared with ECG of 09-Nov-2023 18:05, No significant change was found Referred By: Aida Rosen Electronically Signed By: Abner Vaca
[2025-05-30 08:29] LABS: MANUAL DIFF FLAG NO
[2025-05-30 08:36] LABS: Hematocrit 36.9 % (37.0-47.0); Hemoglobin 12.8 g/dl (12.0-16.0); Imm Gran Abs Auto 0.06 X10*3/uL (0.00-0.03); Imm Gran Pct Auto 0.8 % (0.0-0.4); Lymphocytes Absolute Auto 2.4 X10*3/uL (1.2-4.9); Mean Corpuscular HGB Conc 34.7 g/dl (31.0-35.0); Mean Corpuscular Hemoglobin 32.3 pg (27.0-33.0); Mean Corpuscular Volume 93.2 fL (80.0-98.0); NRBC Abs Auto 0.000 X10*3/uL (0.0-0.012); NRBC Pct Auto 0.0 /100WBC (0.0-0.2); Platelet Count 316 X10*3/uL (160-400); Red Blood Count 3.96 X10*6/uL (4.20-5.50); White Blood Count 7.7 X10*3/uL (4.8-10.8)
[2025-05-30 08:49] LABS: Alanine Aminotransferase 17 U/L (0-31); Albumin Level 3.5 g/dL (3.5-5.0); Alkaline Phosphatase 70 U/L (39-117); Anion Gap 11 (12-20); Aspartate Amino Transferase 23 U/L (5-31); Blood Urea Nitrogen 26 mg/dL (9-16); Calcium 8.9 mg/dL (8.4-10.2); Carbon Dioxide 23 mmol/L (22-29); Chloride 110 mmol/L (96-108); Creatinine Clr Calc Pharmacy 37.2; Estimated Glomerular Filt Rate 48; Magnesium 2.4 mg/dL (1.6-2.6); Potassium 4.0 mmol/L (3.3-5.1); Sodium 140 mmol/L (135-145); Total Protein 6.2 g/dL (6.5-8.0)
[2025-05-30 08:50] LABS: Troponin-I High Sensitivity 3.6 ng/L (<3.5-17.0)
[2025-05-30 08:52] LABS: NT Pro B Type Natriuretic Pept 88.6 pg/mL (<300)
--- NOTE | 2025-05-30 09:06 | ED_ITS ---
HPI - Chest Pain General Chief Complaint: Chest Pain Stated Complaint: CHEST PRESSURE Time Seen by Provider: 05/30/25 08:48 Source: patient, family (Daughter at bedside), EMS, RN notes reviewed and old records reviewed Mode of arrival: EMS Limitations: no limitations History of Present Illness ED Provider: ALANA Jim HPI narrative: 79-year-old female with medical history of HTN, COPD, s/p left-sided lobectomy 8 years ago (with regular CT surveillance) presents to the ED due to chest pressure. Patient states she was awoke from sleep around 2:00 a.m. from left- sided chest pressure that she describes as a ton of bricks, heavy, non sharp, nonpleuritic, and no radiation but did feel shaky . Symptoms are intermittent, with HS episode lasting only a few sec at a time. The last episode occurred just before EMS arrival around 7:30 a.m. this episode of chest pain is not associated with nausea, diaphoresis, pallor or dyspnea. Additionally, patient's daughter states that the patient had an unwitnessed fall yesterday while standing up from the toilet, she heard the commotion and went to check on her mom. The patient states that she did not hit her head and was able to protect herself with the hand on the wall, hit the left side of her chest and abdomen on the wall with some pain on the left side of the abdomen. Patient reports she remained alert and can recall the event but is not sure of the reason for falling. Patient states she felt fine the rest of the day and was able to resume her normal activities. Denies shortness of breath, difficulty breathing, fevers, chills, cough, nasal congestion, nausea, vomiting, black/tarry stool, urinary symptoms Related Data Previous Rx's ?Medication ?Instructions ?Recorded benzonatate 100 mg capsule 100 mg PO BID PRN cough 7 d ays #14 05/02/22 caps meclizine 25 mg tablet 25 mg PO BID PRN dizziness # 20 tabs 11/09/23 ondansetron 4 mg disintegrating 4 mg PO Q8H PRN nausea and 11/09/23 tablet vomiting #10 tabs Allergies Allergy/AdvReac Type Severity Reaction Status Date / Time Iodinated Contrast Media (IV Allergy Severe RED PALMS Verified 05/30/25 08:10 Dye, Iodine Containing) SEASONAL ALLERGIES Allergy Unknown RUNNY NOSE Uncoded 02/27/20 14:44 Review of Systems 2 Review of Systems: Yes all other systems are reviewed and are negative [facility] Past Medical History Attestation statement: The following information was validated with the patient. Source: old records reviewed, obtained from family (Daughter at bedside corroborating history) and nursing notes reviewed Medical History Blind right eye History of prediabetes HTN (hypertension) Colitis Surgical History History of cholecystectomy S/P partial lobectomy of lung H/O tubal ligation Social History Social History Smoked in Last 30 Days: No Use of substances other than those prescribed or required for medical reasons: No Advance Directives: No Advance Directives Information Provided: Yes Physical Exam 2 Vital Signs: Vital Signs: Last Vital Signs Temp 97.6 F 05/30/25 11:43 Pulse 105 H 05/30/25 13:02 Resp 16 05/30/25 11:43 BP 158/83 H 05/30/25 13:02 Pulse Ox 96 05/30/25 11:43 O2 Del Method Room Air 05/30/25 11:43 BMI result Body Mass Index 33.0 GENERAL APPEARANCE: ?AxOx4, generally well-appearing, no acute distress. HEENT: ?NC, AT. MMM. EOMI, clear conjunctiva, oropharynx clear. NECK: ?Supple without lymphadenopathy.? No stiffness or restricted ROM. HEART:? Normal rate and regular rhythm, normal S1/S2, no m/r/g LUNGS:? CTAB, moving air well. No crackles or wheezes are heard. ABDOMEN: ?Soft, nondistended, no rigidity, with diffuse pain to palpation over the left ribs, and left upper quadrant, left lower quadrant, no ecchymosis or overlying skin changes noted BACK: No CVAT, no obvious deformity. EXTREMITIES: ?Without cyanosis, clubbing or edema. NEUROLOGICAL: ?Grossly nonfocal. Alert and oriented, moving all 4 extremities. Observed to ambulate with normal gait. Skin: ?Warm and dry without any rash. Medications Administered Discontinued Medications Generic Name Dose Route Start Last Admin Trade Name Grzegorz PRN Reason Stop Dose Admin Diphenhydramine HCl 25 mg 05/30/25 09:44 05/30/25 09:52 Diphenhydramine Hcl 50 Mg/Ml Vial IVPUSH 05/30/25 09:45 25 mg ONCE ONE Administration Lactated Ringer's 1,000 mls @ 999 mls/hr 05/30/25 09:44 05/30/25 12:38 Lr IV 05/30/25 10:44 Infused .Q1H1M ONE Infusion Iohexol 100 ml 05/30/25 11:21 05/30/25 11:21 Iohexol 350 Mg/Ml 100 Ml Infus..Btl IV 05/30/25 11:22 85 ml ONCE ONE Administration Methylprednisolone Sodium Succinate 60 mg 05/30/25 09:44 05/30/25 09:52 Methylprednisolone Sod Succ 125 Mg/2 Ml Vial IVPUSH 05/30/25 09:45 60 mg ONCE ONE Administration Medical Decision Making Medical Decision Making MDM Narrative: 79-year-old female with medical history of HTN, COPD, s/p left-sided lobectomy 8 years ago (with regular CT surveillance) presents to the ED due to chest pressure. Patient states she was awoke from sleep around 2:00 a.m. from left- sided chest pressure that she describes as a ton of bricks, heavy, non sharp, nonpleuritic, and no radiation but did feel shaky . Symptoms are intermittent, with HS episode lasting only a few sec at a time. Patient had unwitnessed fall yesterday where she is able to stable herself with her hand on the while however did hit the left side of her ribs and abdomen onto the wall and is now having diffuse left-sided abdominal pain. Patient denies loss of consciousness or head strike, but can not recall why she fell. When patient entered the emergency department chest pressure had resolved. VS on initial observation-BP 139/71, pulse rate of 82, respiratory rate of 18, afebrile with oral temp of 97.4?, O2 saturation 96% on room air. On physical exam patient is well-appearing, nontoxic appearing, in no acute distress. HEENT exam reveals EOMI, with appropriate accommodation and consensual light reflex, no nystagmus, the head is normocephalic and atraumatic. Lungs clear to auscultation bilaterally without expiratory wheeze, rhonchi, rales, no increased work of breathing, no accessory muscle use or pursed lip breathing noted, cardiac exam reveals normal rate and rhythm without murmurs/rubs/gallops, abdomen is soft, nondistended, no rigidity, with diffuse tenderness to the left side of the ribs and abdomen, without ecchymosis or overlying skin changes, lower extremities without edema, cyanosis Plan: Labs, EKG, CXR, CTA PE, CT abdomen and pelvis - patient medicated with 60 mg IV Solu-Medrol, 25 mg Benadryl as she develops itchy rash on her palms from contrast dye EKG reveals normal sinus rhythm with nonspecific T-wave inversions in AVR, V1, no ST-elevation/depression, no prolonged QT, initial troponin 3.6, 2nd troponin 4.1 Labs without leukocytosis/leukopenia, H&H stable, no electrolyte abnormalities, BNP WNL at 88.6 Orthostatic vital signs negative Viral serology negative CXR without acute cardiopulmonary processes, does reveal calcified aorta and degenerative disc disease of the spine CTA PE study negative for acute intrathoracic traumatic injury or acute fracture, no acute pulmonary artery emboli, no aneurysm or dissection CTA abdomen and pelvis negative for acute intra-abdominal pathology, vascular injury, or fracture Patient with left-sided chest pressure that is heavy in quality, non sharp, nonpleuritic, without radiation that awoke her from sleep this morning and lasted for approximately 5 hours when EMS showed up. Patient arrived to the department without chest pain. Labs unremarkable, without elevated BNP, electrolyte abnormalities, EKG with normal sinus rhythm without signs of acute ischemia, initial troponin 3.6, 2nd troponin 4.1, no delta, negative orthostatic hypotension. CTA PE study negative for acute intrathoracic traumatic injury or pulmonary artery emboli, CT abdomen and pelvis negative for intra-abdominal pathology, vascular injury or fracture. I am unsure of what caused the patient's chest pain today. Patient will be referred to [facility] for follow up and I explained to her that she may need Holter monitor, stress test, or echocardiogram for further evaluation and management of chest pain. I counseled patient to follow up with her primary care doctor. Patient feels well enough to go home for self-care at this time, without chest pain or pressure, dizziness. Patient and daughter are in agreement with the plan. Differential Diagnosis Differential Diagnoses: The differential diagnosis associated with the presentation includes ACS Dysrhythmia Electrolyte abnormality Pulmonary embolism Rib fracture Acute abdomen Atypical chest pain Angina Admission/Observation Consideration of admission/observation: Escalation of care including admission/observation considered I considered admission however patient's chest pain has resolved while in the department, without any acute findings, tachycardia, hypoxia, tachypnea, no indication for admission at this time Lab Data MDM Lab Attestation statement: I reviewed the patient's lab results. 05/30/25 08:24 05/30/25 08:24 Labs: Lab Results 05/30/25 05/30/25 05/30/25 Range/Units 08:24 10:44 11:47 WBC 7.7 (4.8-10.8) X10*3/uL RBC 3.96 L (4.20-5.50) X10*6/uL Hgb 12.8 (12.0-16.0) g/dl Hct 36.9 L (37.0-47.0) % MCV 93.2 (80.0-98.0) fL MCH 32.3 (27.0-33.0) pg MCHC 34.7 (31.0-35.0) g/dl RDW 12.3 (11.0-16.0) % Plt Count 316 D (160-400) X10*3/uL MPV 9.1 L (9.4-12.3) fL Immature Gran % (Auto) 0.8 H (0.0-0.4) % Neut % (Auto) 56.9 (45-73) % Lymph % (Auto) 31.4 (20-40) % [place] % (Auto) 7.8 (2-11) % Eos % (Auto) 2.6 (0-4) % Baso % (Auto) 0.5 (0-2) % Lymph # (Auto) 2.4 (1.2-4.9) X10*3/uL [place] # (Auto) 0.6 (0.1-1.2) X10*3/uL Eos # (Auto) 0.2 (0.0-0.4) X10*3/uL Baso # (Auto) 0.0 (0.0-0.2) X10*3/uL Abs Immat Gran (auto) 0.06 H (0.00-0.03) X10*3/uL Absolute Neuts (auto) 4.4 (2.0-8.3) x10*3/uL Absolute Nucleated RBC 0.000 (0.0-0.012) X10*3/uL Nucleated RBC % (auto) 0.0 (0.0-0.2) /100WBC Sodium 140 (135-145) mmol/L Potassium 4.0 (3.3-5.1) mmol/L Chloride 110 H (96-108) mmol/L Carbon Dioxide 23 (22-29) mmol/L Anion Gap 11 L (12-20) BUN 26 H (9-16) mg/dL Creatinine 1.10 (0.5-1.4) mg/dL Estim Creat Clear Calc 37.2 Estimated GFR 48 Random Glucose 113 (60-115) mg/dL Calcium 8.9 (8.4-10.2) mg/dL Magnesium 2.4 (1.6-2.6) mg/dL Total Bilirubin 0.5 (0.0-1.0) mg/dL AST 23 (5-31) U/L ALT 17 (0-31) U/L Alkaline Phosphatase 70 (39-117) U/L Troponin I High Sens 3.6 4.1 (<3.5-17.0) ng/L NT-Pro-B Natriuret Pep 88.6 (<300) pg/mL Total Protein 6.2 L (6.5-8.0) g/dL Albumin 3.5 (3.5-5.0) g/dL Urine Color Yellow Urine Appearance Clear Urine pH 6.0 (5.0-9.0) Ur Specific [place] <= 1.005 (1.005-1.025) Urine Protein Negative (Neg-Trace) mg/dL Urine Glucose (UA) Negative (Negative) mg/dL Urine Ketones Negative (Negative) mg/dL Urine Blood Negative (Negative) Urine Nitrite Negative (Negative) Ur Leukocyte Esterase Negative (Negative) Influenza Type A (PCR) NEGATIVE (Negative) Influenza Type B (PCR) NEGATIVE (Negative) RSV RNA Qual (PCR) NEGATIVE (Negative) SARS-CoV-2 RNA (RT-PCR) NEGATIVE (Negative) Independent Interpretation I performed an independent interpretation of an: EKG, Plain X-Ray and CT Scan Radiology Impression Discussion of test interpretation with radiology: I have reviewed the radiologist's reading. Independent Historian Clinical information obtained from an independent historian. History obtained from or confirmed by: Other (Daughter at bedside corroborating history) External Record Review External record reviewed: Inpatient record, Office record, Outpatient record, Prior outpatient labs and Prior outpatient radiology Chronic Conditions Patient?s care impacted by: Hypertension and Other (COPD, s/p left-sided lobectomy 8 years ago) Discharge Plan Discharge Clinical Impression: Atypical chest pain Patient Disposition: Home, Self-Care Additional Instructions: You were evaluated in the emergency department due to chest pain. Your lab work was reassuring today as there was no evidence of anemia, electrolyte abnormality. Your EKG was normal and did not have any emergent pattern, your troponins which is a protein when the heart gives off when under stress or damage were both within normal limits today without a significant elevation. 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 Please follow up with your primary care doctor to discuss hiatal hernia, to ensure resolution of your symptoms Please return to the emergency department if you experience worsening chest pain, abdominal pain, nausea, vomiting, headaches, visual changes, difficulty breathing, shortness of breath, or any new/worsening/concerning symptoms. Prescriptions: No Action benzonatate 100 mg capsule 100 mg PO BID PRN (Reason: cough) 7 Days Qty: 14 0RF meclizine 25 mg tablet 25 mg PO BID PRN (Reason: dizziness) Qty: 20 0RF ondansetron 4 mg tablet,disintegrating 4 mg PO Q8H PRN (Reason: nausea and vomiting) Qty: 10 0RF Print Language: Cuban
[2025-05-30 09:09] LABS: Resp Syncy Virus RNA Qual PCR NEGATIVE (Negative); SARS COV2 PCR INHOUSE NEGATIVE (Negative)
--- NOTE | 2025-05-30 09:29 | PC.NURSE ---
pt to ED from home. was woken up in the middle of the night by mid sternal chest pressure non radiating. She states it is not a sharp pain but a heaviness/pressure and it comes and goes. denies cardiac history. states she has COPD. No SOB right now, no O2. pt NSR on tele. 20g IV in left AC. EKG and labs done. changed into hospital clothing.
--- OUTSIDE RECORDS SUMMARY | 2025-05-30 09:31 | XMS_ITS | Clinical Summary ---
Author Organization [address] Address [address] [place] [phone] Phone Care Team Providers Care Weight Control Engineer Name Role Phone Cindy Simpson MD Primary Care Provider [phone] Allergies Active Allergy Reactions Criticality Noted Date Comments Grass Pollen 02/05/2025 Octacosanol 11/27/2007 Other 11/27/2007 Medications aspirin 81 mg EC tablet Take by mouth. 03/11/20 11 Active incontinence pad,liner,disp (BLADDER CONTROL PADS EX ABSORB MISC) 8 each by Not Applicable route. 12/08/19 24 Active lisinopril (PRINIVIL,ZESTRIL) 40 mg tablet TAKE 1 TABLET BY MOUTH DAILY 90 tablet 3 06/27/19 25 Active calcium carbonate 1,500 mg (600 mg elemental calcium) tablet Take 1 tablet (1,500 mg total) by mouth. Active calcium carb/vit D3/minerals (CALTRATE 600+D PLUS MINERALS ORAL) Take by mouth 1 (one) time each day. Active metoprolol tartrate (LOPRESSOR) 25 mg tablet Take one half tablet twice daily 90 each 3 06/27/19 25 Active fluticasone propionate (FLONASE) 50 mcg/actuation nasal spray Administer 2 sprays into each nostril 1 (one) time each day. Shake gently. Before first use, prime pump. After use, clean tip and replace cap. 16 g 5 11/19/19 25 026 Active cilostazoL (PLETAL) 50 mg tablet TAKE 1 TABLET BY MOUTH TWICE DAILY 180 tablet 1 12/26/19 25 Active lidocaine (LIDODERM) 5 % patchIndications:A cute pain of right shoulder Apply 1 patch topically 1 (one) time each day. Remove & discard patch within 12 hours or as directed by MD. 10 patch 12/31/19 25 Active amLODIPine (NORVASC) 2.5 mg tablet TAKE 1 TABLET(2.5 MG) BY MOUTH DAILY 90 tablet 1 01/07/20 25 Active omeprazole (PriLOSEC) [address] capsule TAKE 1 CAPSULE(20 MG) BY MOUTH 1 TIME EACH DAY 90 capsule 1 02/19/20 25 Active simvastatin (ZOCOR) 10 mg tablet TAKE 1 TABLET(10 MG) BY MOUTH AT BEDTIME 90 tablet 1 03/21/20 25 Active fluticasone-umecli dinium-vilanterol (Trelegy Ellipta) 200-62.5-25 mcg inhalerIndications :Stage 2 moderate COPD by GOLD classification (CMS/HCC V24, CMS/HCC V28),Centrilobular emphysema (CMS/HCC V24, CMS/HCC V28) INHALE 1 PUFF INTO THE LUNGS DAILY 180 each 3 04/02/20 25 Active methenamine hippurate (HIPREX) 1 gram tablet Take 1 tablet (1 g total) by mouth 2 (two) times a day. 180 each 3 04/09/20 25 Active estradioL (ESTRACE) 0.01 % (0.1 mg/gram) vaginal cream Insert 0.05 g into the vagina 2 (two) times a week. 42.5 g 3 04/10/20 25 Active albuterol HFA (PROAIR HFA ; PROVENTIL HFA ; VENTOLIN HFA) 90 mcg/actuation inhaler Inhale 2 puffs by mouth every 4 (four) hours if needed for wheezing. 6.7 g 1 05/05/20 25 026 Active loratadine (CLARITIN) 10 mg tablet Take 1 tablet (10 mg total) by mouth 1 (one) time each day. 90 tablet 05/05/20 25 Active mirabegron (Myrbetriq) 50 mg 24 hr tablet Take 1 tablet (50 mg total) by mouth 1 (one) time each day. 90 each 05/13/20 25 Active albuterol HFA (PROAIR HFA ; PROVENTIL HFA ; VENTOLIN HFA) 90 mcg/actuation inhaler Inhale 2 puffs by mouth every 4 (four) hours if needed for wheezing. 6.7 g 1 05/23/20 24 025 Discontinu ed(Reorder ) loratadine (CLARITIN) 10 mg tablet TAKE 1 TABLET BY MOUTH DAILY 90 tablet 11/13/19 25 025 Discontinu ed(Reorder ) mirabegron (Myrbetriq) 50 mg 24 hr tablet Take 1 tablet (50 mg total) by mouth 1 (one) time each day. 90 tablet 3 04/09/20 25 025 Discontinu ed(Alterna te therapy) predniSONE (DELTASONE) 10 mg tabletIndications: Wheezing Take 4 tablets (40 mg total) by mouth 1 (one) time each day for 5 days. 20 tablet 05/22/20 25 025 erythromycin 5 mg/gram (0.5 %) ophthalmic ointmentIndication s:Acute viral conjunctivitis of left eye Apply to left eye 4 (four) times a day for 7 days. 3.5 g 05/22/20 25 025 Active Problems Problem Noted Date Diagnosed Date Pulmonary nodule 07/22/2024 Assessment & Plan (02/06/2025 3:18 PM EDT): 79-year-old woman former smoker who in 2017 underwent a VATS left upper lobectomy with my former partner for stage I lung cancer who was in the surveillance program for 5 years and then was put into the screening program after that. She has been being followed more recently by the thoracic surgery department for enlarging pulmonary nodules. Her most recent chest CT scan which was performed at [facility] in January 2025 and shows the nodule in the posterior left lower lobe appears smaller and less confluent than on the previous study. There is also a few other small solid ground glass nodules seen which remained stable. She denies any concerning signs or symptoms such as unintentional weight loss, hemoptysis or drenching night sweats. She also denies any new or worsening shortness of breath and continues to follow with her juvenile justice specialist for her COPD. She was informed that we would be referring her back to the lung cancer screening program with her next LDCT scan due in 12 months time which will be January 2026. Assessment & Plan (07/26/2024 10:05 AM EST): Assessment & Plan (07/22/2024 9:04 AM EST): 79-year-old woman with pulmonary nodule about 5 mm in size that is stable in the left lower lobe compared with the most recent CT scan. There is also stable 7 mm groundglass nodules in the right upper lobe and left lower lobe. I had a discussion with the patient and family about the findings on CT scan as described in the HPI. We also talked about pulmonary nodules in general in the setting of a history of lung cancer resection. We discussed the size, shape, and manager of change time as features that raise or lower suspicion malignancy. Given the small size and no change on recent imaging, we will plan on continuing follow-up imaging this time in 6 months and a visit in this office after that. All questions were answered. Former smoker 03/18/2024 H/O: lung cancer 03/18/2024 History of lung surgery 03/18/2024 Normal vagina 03/18/2024 Esophageal reflux 03/18/2024 Chronic idiopathic constipation 06/16/2023 Overview (03/18/2024): Last Assessment & Plan: I recommended that she use her prune juice more often than she is now to help her with passing stools. She agreed. Abdominal aortic aneurysm (AAA) 05/01/2023 Peripheral venous insufficiency 05/01/2023 Stenosis of carotid artery 05/01/2023 Class 1 obesity 05/01/2023 Incontinence in female 08/17/2022 Overview (03/18/2024): Last Assessment & Plan: Significantly improved with use of Estrace cream. I encouraged her to continue to do so. She asked if it would be recommended to use the Vesicare. I explained that this would be up to her as it is a quality of life issue. She may or may not have SE, but the only way to know would be to try it. She will follow up with Dr. Lee in July as she previously recommended. Lab test negative for COVID-19 virus 10/26/2020 Syncope 01/09/2018 Overview (03/18/2024): hspitalization at [facility] December 17 no specific etiology discovered. PVD (peripheral vascular disease) 12/22/2017 Assessment & Plan (07/26/2024 10:05 AM EST): Squamous cell lung cancer, left 10/02/2017 Centrilobular emphysema 10/02/2017 Assessment & Plan (07/26/2024 10:05 AM EST): Malignant neoplasm of left lung 03/22/2017 CKD (chronic kidney disease) stage 3, GFR 30-59 ml/min 03/22/2017 Assessment & Plan (07/03/2024 12:36 PM EST): 79 y/o F with recent gastrointestinal illness resulting in dehydration with decreased GFR. Pt was treated with 1L of fluids, I placed lisinopril and amlodipine on hold for 2 days (as by the time of my evaluation, pt was mostly improved from her illness). Repeat renal function was normal. Blood pressure better today (back on amlodipine and lisinopril). To follow back with PCP as scheduled next month and I reviewed s/s that warrant sooner evaluation. They were asked to call with questions or concerns. Degenerative arthritis of cervical spine 015 HTN (hypertension) 11/29/2013 Assessment & Plan (07/26/2024 10:05 AM EST): Carotid stenosis, bilateral 07/23/2012 Overview (03/18/2024): Follows with Dr. Lucero NESBITT 2014 50-69% on right, left OK Hypercholesteremia 04/29/2008 Ischemic colitis, enteritis, or enterocolitis Overview (03/18/2024): 06/24/07 Gastroesophageal reflux disease without esophagi tis 06/06/2005 Stage 2 moderate COPD by GOLD classification Encounters Date Type Department Care Team Description 05/22/2025 9:30 AM EST Office Visit [address] [phone] Magno Carrasquillo PA Viral upper respiratory illness (Primary Dx); Wheezing; Acute viral conjunctivitis of left eye; Primary hypertension 05/22/[address] [phone] Cindy Simpson MD 05/13/2025 Telephone Urogynecology [address] [phone] Gretchen Lee MD 05/05/2025 3:30 PM EST Office Visit [address] [phone] Cindy Simpson MD Hyperglycemia (Primary Dx); Stage 3 chronic kidney disease, unspecified whether stage 3a or 3b CKD (CMS/HCC V24, CMS/HCC V28); Class 1 obesity; Squamous cell lung cancer, left (CMS/HCC V24, CMS/HCC V28); Stenosis of carotid artery, unspecified laterality; Ischemic colitis, enteritis, or enterocolitis (CMS/HCC V24); Frequent UTI 04/30/[address] [phone] Flash Reid LPN 04/29/[address] [phone] Cindy Simpson MD 04/17/[address] [phone] Cindy Simpson MD 04/10/2025 11:00 AM EDT Procedure visit Urogynecology [address] [phone] Yessi Nascimento NP UTI symptoms (Primary Dx); Urge incontinence; Vaginal vault prolapse; Vaginal atrophy 04/09/2025 9:45 AM EDT Office Visit Urogynecology [address] [phone] Gretchen Lee MD Nocturnal enuresis (Primary Dx); Urge incontinence; Nocturia; Urinary urgency; Urinary frequency; AMARA (stress urinary incontinence, female); Recurrent UTI; Prolapse of anterior vaginal wall; Prolapse of posterior vaginal wall; Vaginal vault prolapse; UTI symptoms 04/07/2025 Telephone Gastroenterology - [place] [facility] 200 [place] [phone] Shubham Conde MD 03/20/2025 Telephone Obstetrics and Gynecology [address] [phone] Maida Arellano RN 03/19/2025 Results Follow-Up Urogynecology - [address] [place] [phone] Yessi Nascimento NP 03/18/2025 Telephone Obstetrics and Gynecology [address] [phone] Kerry Ziegler MD 03/14/2025 Telephone Adult Medicine [address] [phone] Cindy Simpson MD 03/13/2025 Results Follow-Up Adult [address] [phone] Maryjane Araiza PA 03/12/2025 1:15 PM EDT Office Visit Adult [address] [phone] Maryjane Araiza PA Acute cystitis without hematuria (Primary Dx); Urine frequency 03/12/2025 Telephone Adult Medicine [address] [phone] Cindy Simpson MD from Last 3 Months Immunizations Immunization Administration Dates Next Due COVID-19 (Pfizer/Comirnaty) 12yo and older 04/30/2023 H1N1 Inj Preservative Free 04/27/2009 Influenza Quadravalent, 0.5m l (Fluzone High-dose) 65yo and older 04/17/2023,03/05/2023,03/21/2022,03/10,03/03/2020,03/10/2014 Influenza trivalent, 0.5mL ( Fluzone High-dose) 65yo and older 02/17/2025,03/01/2024,03/21/2022,03/10,03/03/2020,02/25/2019,02/19/2018 ,02/20/2017,03/13/2016,02/20/2015,02/2012,02/28/2011,03/23/2010, 9,05/04/2005 Influenza trivalent, 0.5mL, preservative free (Fluarix; FluLaval; Fluzone) ages 6mo and older (Afluria) 3 years and older 02/11/2024 Influenza trivalent, with pr eservative (Fluzone; Afluria) 6mo and older 04/28/2008,03/05/2007,05/08/2006 Pfizer (ages 12 & older) Biv alent, COVID-19 06/09/2022 Pfizer SARS-CoV-2 COVID-19, mRNA, LNP-S, preservative free 04/30/2023 Pneumococcal conjugate 20 va lent (Prevnar 20, PCV 20) 2mo and older 05/01/2023 Pneumococcal polysaccharide 23 valent (Pneumovax 23) 2yo and older 10/02/2017,04/13/2010,05/28/2002 Td Tetanus diptheria (Tdvax) 7yo and older 10/28/2004 Td, Unspecified 10/28/2004 Tdap Tetanus diptheria acell ular pertussis (Boostrix; Adacel) 7yo and older 05/01/2023 Surgical History Surgery Date Site/Laterality Comments HYSTERECTOMY 90's PROCEDURE: HISTORICAL HYSTERECTOMY; COMMENT: vag hyst, has ovaries OTHER SURGICAL HISTORY 10/2017 PROCEDURE: OK UNLISTED PROCEDURE EXTRAOCULAR MUSCLE; COMMENT: cataract removal OTHER SURGICAL HISTORY PROCEDURE: OK REMOVAL OF LUNG PNEUMONECTOMY; COMMENT: partial, left for cancer BREAST BIOPSY 1992 Right PROCEDURE: BX BREAST; PERC NEEDLE CORE W/IMAG GUID; COMMENT: rt. breast bx.--benign BREAST BIOPSY 2006ish Left PROCEDURE: OK BX BREAST W/DEVICE 1ST LESION ULTRASOUND GUID; COMMENT: b9 Medical History Medical History Date Comments Chronic airway obstruction, not elsewhere classified DX:Chronic airway obstructio n, not elsewhere classified; COMMENT: 12/11FEV1 1.46, 67% Esophageal reflux DX:Esophageal reflux Chronic airway obstruction, not elsewhere classified 06/06/2005 DX:Chronic airway obstructio n, not elsewhere classified Special screening for malign ant neoplasms, colon 05/29/2006 DX:Special screening for mal ignant neoplasms, colon; COMMENT: Negative colonoscopy 05/29/2006, no colon cancer screening needed for 10 years. Essential hypertension, benign D X:Essential hypertension, benign Peripheral vascular disease [place] [place]) 01/14/2008 DX:Peripheral vascular disea se ([facility]); COMMENT: Follow by Dr. Barker Hypercholesteremia 04/29/2008 DX:Hyperchole steremia CKD (chronic kidney disease) stage 3, GFR 30-59 ml/min ([facility] [place], [facility] V28) 04/18/2011 DX:CKD (chronic kidney disea se) stage 3, GFR 30-59 ml/min ([facility]) Carotid stenosis, bilateral 07/23/2012 DX:C arotid stenosis, bilateral CKD (chronic kidney disease) 02/04/2013 DX: CKD (chronic kidney disease) Onychomycosis 06/15/2015 DX:Onychomycosis Lung cancer ([facility] [place], [facility]) 11/2016 DX:Lung cancer ([facility]) Fecal incontinence DX:Fecal inco ntinence Urinary incontinence DX:Urinary incontinence Incomplete uterovaginal prolapse DX:Incomplete uterovaginal prolapse PVD (peripheral vascular dis ease) ([facility]) 12/22/2017 DX:PVD (peripheral vascular disease) ([facility]) Stenosis of carotid artery 05/01/2023 DX:St enosis of carotid artery Peripheral venous insufficiency 05/01/2023 DX:Peripheral venous insufficiency Abdominal aortic aneurysm (A AA) ([facility]) 05/01/2023 DX:Abdominal aortic aneurysm (AAA) ([facility]) HTN (hypertension) 11/29/2013 DX:HTN (hyper tension) Class 1 obesity 05/01/2023 DX:Class 1 obesi ty Ischemic colitis, enteritis, or enterocolitis ([facility]) 07/05/2007 DX:Ischemic colitis, enter itis, or enterocolitis ([facility]); COMMENT: 06/24/07 Gastroesophageal reflux dise ase without esophagitis 10/02/2017 DX:Gastroesophageal reflux d isease without esophagitis Chronic idiopathic constipation 06/16/2023 DX:Chronic idiopathic constipation Squamous cell lung cancer, l eft ([facility], [facility]) 10/02/2017 DX:Squamous cell lung cance r, left (HCC) Malignant neoplasm of left l kei ([facility], [facility]) 03/22/2017 DX:Malignant neoplasm of le ft lung ([facility]) Incontinence in female 08/17/2022 DX:Incont inence in female Degenerative arthritis of ce rvical spine 08/25/2014 DX:Degenerative arthritis of cervical spine Stage 2 moderate COPD by GOL D classification ([facility], [facility]) 10/02/2017 DX:Stage 2 moderate COPD by GOLD classification ([facility]) Centrilobular emphysema ([facility] V24, [facility]) 10/02/2017 DX:Centrilobular emphysema ( [facility]) Former smoker 10/02/2017 DX:Former smoker History of lung cancer 10/02/2017 DX:Histor y of lung cancer Syncope 01/09/2018 DX:Syncope; COMM ENT: hspitalization at [facility] December 17 no specific etiology discovered. History of lung surgery 04/02/2018 DX:Histo ry of lung surgery Lab test negative for COVID-19 virus 10/26/2020 DX:Lab test negative for COVID-19 virus Normal vagina 06/16/2023 DX:Normal vagina Pulmonary nodule 03/26/2024 DX:Pulmonary no dule Chronic obstructive airway d isease ([facility], [facility]) 06/06/2005 DX:Chronic obstructive airw ay disease (HCC) Family History Medical History Relation Name Comments Other: emphysema Father Diabetes Mother Stroke Mother Other cancer Sister 1 bone and brain Breast cancer Neg Hx Colon cancer Neg Hx Ovarian cancer Neg Hx Pancreatic cancer Neg Hx Prostate cancer Neg Hx Uterine cancer Neg Hx Relation Name Status Comments Father Mother Sister 1 Sister 2 Alive Social History Tobacco Use Types Packs/Day Years Used Date Smoking Tobacco: Former Cigarettes 1.5 51 0 [birth year]/12/1957 - 2008 Smokeless Tobacco: Never Tobacco Cessation:Counseling Given: Not Answered Alcohol Use Standard Drinks/Week Comments No 0 (1 standard drink = 0.6 oz pur e alcohol) Housing Instability Answer Date Recorde d Are you worried that in the next 2 months you may not have stable housing? No 05/22/2025 Food Access & Nutrition Answer Date Rec orded Do you have access to a vari ety of food including fruits and vegetables? Yes 05/22/2025 Health Literacy Answer Date Recorded How often do you need to hav e someone help you when you read instructions, pamphlets, or other written material from your doctor or pharmacy? Sometimes 05/22/2025 Caregiver: How often do you need to have someone help you when you read instructions, pamphlets, or other written material from your doctor or pharmacy? Not on file 05/22/2025 Financial Risk Answer Date Recorded How hard is it for you to pa y for the very basics like food, housing, medical care, and air conditioning / heating? Not very hard 05/22/2025 Transportation Answer Date Recorded Has the lack of transportati on kept you from meetings, work, or from getting things needed for daily living? No Has the lack of transportati on kept you from medical appointments or from getting medications? No 05/22/2025 Social Isolation Answer Date Recorded How often do you feel lonely or isolated from th ose around you? Never 05/22/2025 Food Risk Answer Date Recorded Within the past 12 months we worried whether our food would run out before we got money to buy more. Never true 05/22/2025 Within the past 12 months th e food we bought just didn't last and we didn't have money to get more. Never true 05/22/2025 Dependent Care Answer Date Recorded Do you need help finding or paying for care for your loved ones. For example, child caregiver private home or elderly care for an older adult? No 05/22/2025 Education Answer Date Recorded Do you think completing more education or training, like finishing a GED, going to college, or learning a trade, would be helpful for you? No 05/22/2025 Employment and Income Answer Date Recor ded During the last four weeks, have you been actively looking for work? No 05/22/2025 Living Situation Answer Date Recorded What is your living situation? Unrecognized valu e 05/22/2025 Comments No Sex and Gender Information Value Date Recorded Sex Assigned at Female 07/10/2024 3:31 PM EST Legal Sex Female 10:02 PM EST Gender Identity Female 07/10/2024 3:31 PM EST Sexual Orientation Straight 07/10/2024 3: 31 PM EST Obstetrics History Para Term AB IAB SAB Ectopic Multiple Livin g Live Births 5 5 5 Date Outcome GA Total Labor Labor/2nd/3rd Weight Sex Type Anes PTL Shadia A1 A5 Name Clin Term Term Term Term Term Last Filed Vital Signs Vital Sign Reading Time Taken Comments Blood Pressure 122/73 05/22/2025 9:29 AM EST Pulse 95 05/22/2025 9:29 AM EST Temperature 36.1 C (97 F) 05/22/2025 9:29 AM EST Respiratory Rate 15 05/22/2025 9:29 AM EST Oxygen Saturation 97% 05/22/2025 9:29 AM EST Inhaled Oxygen Concentration - - Weight 73.1 kg (161 lb 3.2 oz) 05/22/2025 9:29 A M EST Height 152.4 cm (5') 05/22/2025 9:29 AM EST Body Mass Index 31.48 05/22/2025 9:29 AM EST Plan of Treatment Upcoming Encounters Date Type Department Care Team (Late st Contact Info) Description 06/06/2025 9:30 AM EST Office Visit Adult Medicine [address] [phone] Magno Carrasquillo PA [address] [place], [place] 07/17/2025 3:00 PM EST Office Visit Urogynecology [address] [phone] Yessi Nascimento NP [address] [place] [address] [address] [place] [address] 09/01/2025 2:45 PM EDT Office Visit Pulmonology - [place] [address] [place] [phone] Grazyna Ag, JAJA [address] [place] [phone] 10/06/2025 9:45 AM EDT Office Visit Adult Medicine [place] - [address] [phone] Cindy iSmpson MD [address] [place], [place] 04/13/2026 11:30 AM EST Office Visit Urogynecology [address] [phone] Gretchen Lee MD [address] [facility] [address] [place] [address] Health Maintenance Due Date Last Done Comments Zoster Vaccines (1 of 2) 1964 RSV Immunization Adult Patients (1 - 1-dose 75+ series) 2019 COVID-19 Vaccine ( season) 2025 04/30/2023, 04/30/2023, 06/09/2022, Additional history exists Falls Risk Assessment 07/26/2025 07/26/2024 Medicare Annual Wellness Visit 07/26/2025 07/26/2024 Hypertension/CHF/CAD Annual BMP Blood Test 08/26/2025 08/26/2024, 06/27/2024, 06/25/2024, Additional history exists Social Influencers of Health Screening 05/22/2026 05/22/2025 Cholesterol Screening (Lipid Panel) 11/13/2028 11/14/2023, 11/14/2023 Osteoporosis Screening (Bone Density Screening) 10/09/2031 10/08/2021 DTaP,Tdap,and Td Vaccines (4 - Td or Tdap) 05/01/2033 05/01/2023, 10/28/2004, 10/28/2004 Pneumococcal Vaccine: 50+ Years Completed 05/01/2023, 10/02/2017, 04/13/2010, Additional history exists Depression Screening Completed 07/26/2024, 07/17/19 Influenza Vaccine Completed 02/17/2025, , 02/11/2024, Additional history exists HIB Vaccines Aged Out No longer eligi ble based on patient's age to complete this topic HPV Vaccines Aged Out No longer eligi ble based on patient's age to complete this topic Hepatitis A Vaccines Aged Out No long er eligible based on patient's age to complete this topic Hepatitis B Vaccines Aged Out No long er eligible based on patient's age to complete this topic IPV Vaccines Aged Out No longer eligi ble based on patient's age to complete this topic MMR Vaccines Aged Out No longer eligi ble based on patient's age to complete this topic Meningococcal ACWY Vaccine Aged Out N o longer eligible based on patient's age to complete this topic Meningococcal B Vaccine Aged Out No l onger eligible based on patient's age to complete this topic RSV Immunization Patients Under 20 months Aged Out No longer eligible based on patient's age to complete this topic Varicella Vaccines Aged Out No longer eligible based on patient's age to complete this topic Procedures Procedure Name Priority Date/Time Associated Diagnosis Comments CULTURE URINE Routine 03/18/2025 8:32 AM EDT Urinary tract infection, site not specified CULTURE URINE Routine 03/12/2025 1:33 PM EDT Acute cystitis without hematuria POC URINE AUTO W/O MICRO Routine 03/12/2025 1:30 PM EDT Urine frequency RENAL FUNCTION PANEL Routine 08/26/2024 9:52 AM EDT Stage 3 chronic kidney disease, unspecified whether stage 3a or 3b CKD (CMS/HCC V24, CMS/HCC V28) LIPID PANEL Routine 11/14/2023 HM DEPRESSION SCREENING Routine 07/17/2023 DXA BONE DENSITY STUDY 1+ SITS AXIAL SKEL Routine 10/08/2021 10:14 AM EDT Encounter for general adult medical examination without abnormal findings from Last 3 Months or Most Recently Relevant to Health Maintenance Results * (ABNORMAL) Culture urine (03/18/2025 8:32 AM EDT) Only the most recent of2 resultswithin the time period is included. Culture, Urine 50,000-100,000 CFU/mL Escherichia coli(A) LOCO 03/20/2025 8:14 AM EDT [facility] Urine Urine specimen from urethra / Unknown Non-blood Collection / Unknown 03/18/2025 8:32 AM EDT 03/18/2025 8:32 AM EDT Narrative [facility] - 03/20/2025 8:14 AM EDT Additional colony types present in insignificant amounts. Organism Antibiotic Method Susceptibility Escherichia coli Amoxicillin/Clavulanate LOCO 4 ug/ml: Susceptible Escherichia coli Ampicillin/Sulbactam LOCO 16 ug/ml: Intermediate Escherichia coli Piperacillin/Tazobactam LOCO <=4 ug/ml: Susceptible Escherichia coli Cefazolin (Urine) LOCO 4 ug/ml: Susceptible Escherichia coli Cefoxitin LOCO <=4 ug/ml: Susceptible Escherichia coli Ceftazidime LOCO <=0.5 ug/ml: Susceptible Escherichia coli Ceftriaxone LOCO <=0.25 ug/ml: Susceptible Escherichia coli Cefepime LOCO <=0.12 ug/ml: Susceptible Escherichia coli Meropenem LOCO <=0.25 ug/ml: Susceptible Escherichia coli Amikacin LOCO 2 ug/ml: Susceptible Escherichia coli Gentamicin LOCO <=1 ug/ml: Susceptible Escherichia coli Ciprofloxacin LOCO <=0.06 ug/ml: Susceptible Escherichia coli Levofloxacin LOCO <=0.12 ug/ml: Susceptible Escherichia coli Nitrofurantoin LOCO 64 ug/ml: Intermediate Escherichia coli Trimethoprim/Sulfamethoxazole LOCO >=320 ug/ml: Resistant Yessi Nascimento NP LAB MICROBIOLOGY - GENERAL ORDERABLES Final Result [facility] [address] [place] [address], * (ABNORMAL) POC Urine Auto W/O Micro (03/12/2025 1:30 PM EDT) [facility] Leukocytes UA POC Positive(A) Negative Nitrite UA POC Negative Negative Urobilinogen UA POC Negative Negative Protein UA POC Negative Negative PH UA POC 5.0 5.0 - 9.0 Blood UA POC Positive(A) Negative, Trace Specific [place] UA POC 1.000(A) 1.001 - 1.035 Ketones UA POC Negative Negative Bilirubin UA POC Negative Negative Glucose UA POC Normal Normal, Trace Color UA POC Light Yellow CLARITY, URINE POC Clear Urine Urine specimen obtained by clean catch procedure / Unknown 03/12/2025 1:30 PM EDT Maryjane SORENSEN POINT OF CARE TEST ENTER/EDIT ORDERABLES Final Result * (ABNORMAL) Renal function panel (08/26/2024 9:52 AM EDT) [facility] Sodium 140 133 - 145 mmol/L LAB CHEMISTRY METHOD 08/26/2024 12:59 PM EDT [facility] Potassium 3.9 3.5 - 5.5 mmol/L LAB CHEMISTRY METHOD 08/26/2024 12:59 PM EDT [facility] Chloride 108 96 - 110 mmol/L LAB CHEMISTRY METHOD 08/26/2024 12:59 PM EDT [facility] CO2 24 21 - 32 mmol/L LAB CHEMISTRY METHOD 08/26/2024 12:59 PM EDT [facility] Anion Gap 8 3 - 11 LAB CHEMISTRY METHOD 08/26/2024 12:59 PM EDT [facility] Glucose 102(H) 70 - 100 mg/dL LAB CHEMISTRY METHOD 08/26/2024 12:59 PM EDT [facility] BUN 23 5 - 25 mg/dL LAB CHEMISTRY METHOD 08/26/2024 12:59 PM EDT [facility] Creatinine 1.06 0.50 - 1.10 mg/dL LAB CHEMISTRY METHOD 08/26/2024 12:59 PM EDT [facility] eGFR 53(L) >=60 mL/min/1. 73m2 LAB CHEMISTRY METHOD 08/26/2024 12:59 PM EDT [facility] Comment:Calculation based on the Chronic Kidney Disease Epidemiology Collaboration (CKD-EPI) equation refit without adjustment for race. BUN/Creatinine Ratio 21.7 LAB CHEMISTRY METHOD 08/26/2024 12:59 PM EDT [facility] Albumin 3.4 3.2 - 5.0 g/dL LAB CHEMISTRY METHOD 08/26/2024 12:59 PM T [facility] Calcium 9.4 8.5 - 10.5 mg/dL LAB CHEMISTRY METHOD 08/26/2024 12:59 PM [facility] Phosphorus 3.6 2.5 - 4.5 mg/dL LAB CHEMISTRY METHOD 08/26/2024 12:59 PM T [facility] Blood Venous blood specimen / Unknown Venipuncture / Unknown 08/26/2024 9:52 AM EDT 08/26/2024 9:52 AM EDT Pritesh Vizcarra MD LAB BLOOD ORDERABLES Final Res ult [facility] [address] [place] [address], * Lipid panel (11/14/2023) LDL/HDL Ratio 3 0 - 4 Triglycerides 96 0 - 150 mg/dL Cholesterol 134 0 - 200 mg/dL HDL 51 >=40 mg/dL LDL Cholesterol 64 0 - 100 mg/dL Blood Venous blood specimen / Unknown Lennie Provider LAB BLOOD ORDERABLES Alem l Result * Depression Screening (07/17/2023) Depression Screening abstracted us Historical Provider HEALTH MAINTENANCE Final Result * DXA BONE DENSITY STUDY 1+ SITS AXIAL SKEL (10/08/2021 10:14 AM EDT) Anatomical Region Laterality Modality Bone Densitometr y 07/02/2021 3:52 PM EST Narrative 10/08/2021 3:03 PM EDT BONE DENSITY Lumbar Spine T-score is -0.5 (SD relative to 20-29 y/o adult) Z-score is +2.0 (SD relative to age matched peers) This is normal by criteria defined by the WHO. Left Hip T-score is -1.7 Z-score is +0.5 This is consistent with osteopenia by criteria defined by the WHO. Comparison exam(s): significant decrease in bone density of hip when compared to most recent bone density examination Confidence level is +/-95%. Impression: Based on the World Health Organization criteria, Scarlett Bennett should be classified as having osteopenia. This patient has a 12% risk of major osteoporotic fracture and a 26% risk of hip fracture over the next 10 years. (World Health Organization Fracture Risk Assessment) [facility] Department of Internal Medicine recommends using National Osteoporosis Foundation (NOF) guidelines in treatment decisions related to osteoporosis. NOF guidelines suggest considering treatment for postmenopausal women and men aged 50 or older presenting with the following: History of hip or vertebral fracture. T-score less than or equal to -2.5 (DXA) at the femoral neck, total hip, or spine, after appropriate evaluation to exclude secondary causes. Low bone mass (T-score between -1.0 and -2.5 at the femoral neck or spine) AND a 10-year probability of a hip fracture greater than or equal to 3% OR a 10-year probability of a major osteoporosis-related fracture greater than or equal to 20% based on the [place]-adapted WHO algorithm Please note that all treatment decisions require clinical judgment and consideration of individual patient factors, including patient preferences, co-morbidities, previous drug use, risk factors not captured in the FRAX model (e.g., frailty, falls, vitamin D deficiency, increased bone turnover, interval significant decline in bone density) and possible under- or over-estimation of fracture risk by FRAX. Procedure Note Lee Wilks MD - 05/31/2022 BONE DENSITY Lumbar Spine T-score is -0.5 (SD relative to 20-29 y/o adult) Z-score is +2.0 (SD relative to age matched peers) This is normal by criteria defined by the WHO. Left Hip T-score is -1.7 Z-score is +0.5 This is consistent with osteopenia by criteria defined by the WHO. Comparison exam(s): significant decrease in bone density of hip whencompared to most recent bone density examination Confidence level is +/-95%. Impression: Based on the World Health Organization criteria, Scarlett Bennett should beclassified as having osteopenia. This patient has a 12% risk of majorosteoporotic fracture and a 26% risk of hip fracture over the next 10years. (World Health Organization Fracture Risk Assessment) [facility] Department of Internal Medicine recommendsusing National Osteoporosis Foundation (NOF) guidelines in treatmentdecisions related to osteoporosis. NOF guidelines suggest consideringtreatment for postmenopausal women and men aged 50 or older presentingwith the following: History of hip or vertebral fracture. T-score less than or equal to -2.5 (DXA) at the femoral neck, total hip,or spine, after appropriate evaluation to exclude secondary causes. Low bone mass (T-score between -1.0 and -2.5 at the femoral neck or spine)AND a 10-year probability of a hip fracture greater than or equal to 3% ORa 10-year probability of a major osteoporosis-related fracture greaterthan or equal to 20% based on the [place]-adapted WHO algorithm Please note that all treatment decisions require clinical judgment andconsideration of individual patient factors, including patientpreferences, co-morbidities, previous drug use, risk factors not capturedin the FRAX model (e.g., frailty, falls, vitamin D deficiency, increasedbone turnover, interval significant decline in bone density) and possibleunder- or over-estimation of fracture risk by FRAX. Cindy Simpson MD [facility] DXA PROCEDURES Final Result from Last 3 Months or Most Recently Relevant to Health Maintenance Insurance [facility] MEDICARE Member Subscriber Plan / Payer (Ef fective 2018-Present) Name:SCARLETT BENNETT Relation to Subscriber:Self Name:Scarlett Bennett Payer ID:[id number] Group ID:[id number] Type:Not on file Address: [address] [facility] [place] [address] Advance Directives Documents on File Type Date Recorded Patient Scrap Burner Expl anation Health Care Decision (hx) 01/11/2017 AD PARADA DIRECTIVE Health Care Decision (hx) 01/11/2017 AD PARADA DIRECTIVE Health Care Decision (hx) 01/11/2017 AD PARADA DIRECTIVE Health Care Decision (hx) 01/11/2017 AD PARADA DIRECTIVE Health Care Decision (hx) 01/11/2017 AD PARADA DIRECTIVE Health Care Decision (hx) 01/11/2017 AD PARADA DIRECTIVE Health Care Decision (hx) 01/11/2017 AD PARADA DIRECTIVE Health Care Decision (hx) 01/11/2017 AD PARADA DIRECTIVE Health Care Decision (hx) 01/11/2017 AD PARADA DIRECTIVE Care Teams Weight Control Engineer Relationship Specialty Start Date End Date Cindy Simpson MD [address] [place] [id number] PCP - General 10/09/01
--- OUTSIDE RECORDS SUMMARY | 2025-05-30 09:31 | XMS_ITS | Patient Health Record ---
[facility] Organization [facility] Address [address] [place] [address] Care Team Providers Care Furnace Feeder Name Role Phone Tatiana MORENO, Cindy Wolf Primary Care Provider Unav ailable Jacquie Acevedo Unavailable [phone] Allergies No Known Allergies Reason For Referral No Information Medications Medication SIG (Take, Route, Frequency, Duration) Notes Start Date End Date Status Andreia Aspirin EC Low Dose 81 MG 1 tablet Orally Once a day Active Cilostazol 50 MG 1 tablet 30 minutes before or 2 hours after breakfast and dinner Orally Twice a day Active Simvastatin 10 MG 2 tablets in the kaylin russ Orally Once a day Active Metoprolol Succinate 25 MG 1/2 tablet Or ally twice a day 40 MG Active Lisinopril 40 MG 1 tablet Orally Once a day Active Trelegy Ellipta 200-62.5-25 MCG/ACT INHALE 1 PUFF INTO THE LUNGS DAILY Inhalation; Duration: 90 Days Active Sulfamethoxazole-Trimethopr im 800-160 MG TAKE 1 TABLET BY MOUTH TWICE DAILY FOR 3 DAYS Oral; Duration: 3 Days Active Albuterol Sulfate HFA 108 (90 Base) MCG/ACT INHALE 2 PUFFS INTO THE LUNGS EVERY 4 HOURS NEEDED FOR COUGH OR WHEEZING OR SHORTNESS OF BREATH Inhalation; Duration: 16 Days Active Loperamide HCl 2 MG TAKE 1 CAPSULE BY [facility] FOUR TIMES DAILY NEEDED FOR DIARRHEA Oral; Duration: 15 Days Active Myrbetriq 25 MG 1 tablet Orally Once a day Active amLODIPine Besylate 2.5 MG Oral; Duration: 30 Days Active Caltrate 600 Active Immunizations Vaccine Route Administration Date Status Comme nts Influenza Unknown 02/11/2024 Administered Influenza Unknown 02/10/2025 Administered Social History Tobacco Use: Social History Observation Description Date Details (start date - stop date) Never Smoker NA - NA Tobacco use other than smoking: Question Answer Notes Are you an other tobacco user? No Tobacco Control (Standard) Question Answer Notes Tobacco use: Nonsmoker Additional Findings: Tobacco non-user Ex-cigaret te smoker AUDIT-C (Standard) Question Answer Notes Did you have a drink containing alcohol in the p ast year? No Points 0 Interpretation Negative Problems Problem Type SNOMED Code ICD Code Onset Dates Problem Status W/U Status Risk Notes Problem Plantar wart (60942600) Plantar wart (B07.0) Active confirmed Problem Acquired hammer toe of lesser toe of right foot (54229997208873374 ) Hammertoe of left foot (M20.42) Active confirmed Problem Acquired hammer toe of lesser toe of right foot (80375079445831723 ) Hammertoe of right foot (M20.41) Active confirmed Problem Bilateral atherosclerosis of arteries of lower limbs (68617076283659043 ) Atherosclerosis of artery of both lower extremities (I70.203) Active confirmed Vital Signs Heart Rate 82 /min 05/31/2024 Blood pressure diastolic 80 mm Hg 05/16/2025 Height 5ft in 05/16/2025 Blood pressure systolic 124 mm Hg 05/16/2025 Weight 160 lbs 05/16/2025 BMI 31.24 kg/m2 05/16/2025 Encounters Encounter Location Date Provider Diagnosis [address] [address] 05/31/2024 Jacquie Perica Plantar wart B07.0 ; Hammertoe of left foot M20.42 ; Metatarsalgia of left foot M77.42 ; Metatarsalgia of right foot M77.41 ; Right foot pain M79.671 ; Left foot pain M79.672 ; Atherosclerosis of artery of both lower extremities I70.203 ; Tinea unguium B35.1 ; Pain in left toe(s) M79.675 ; Pain in right toe(s) M79.674 and Hammertoe of right foot M20.[facility] [address] 08/14/2024 Jacquie Perica Plantar wart B07.0 ; Right foot pain M79.671 ; Left foot pain M79.672 ; Atherosclerosis of artery of both lower extremities I70.203 ; Tinea unguium B35.1 ; Pain in left toe(s) M79.675 and Pain in right toe(s) M79.[address] [address] 11/01/2024 Jacquie Perica Plantar wart B07.0 ; Other hammer toe(s) (acquired), left foot M20.42 ; Right foot pain M79.671 ; Left foot pain M79.672 ; Atherosclerosis of artery of both lower extremities I70.203 ; Tinea unguium B35.1 ; Pain in left toe(s) M79.675 ; Pain in right toe(s) M79.674 and Arthritis of joint of lesser toe, left M19.[address] [address] 01/03/2025 Jacquie Perica Plantar wart B07.0 ; Right foot pain M79.671 ; Left foot pain M79.672 ; Atherosclerosis of artery of both lower extremities I70.203 ; Tinea unguium B35.1 ; Pain in left toe(s) M79.675 and Pain in right toe(s) M79.[address] [address] 03/14/2025 Jacquie Perica Plantar wart B07.0 ; Right foot pain M79.671 ; Left foot pain M79.672 ; Atherosclerosis of artery of both lower extremities I70.203 ; Tinea unguium B35.1 ; Pain in left toe(s) M79.675 and Pain in right toe(s) M79.[address] [address] 05/16/2025 Jacquie Perica Plantar wart B07.0 ; Right foot pain M79.671 ; Left foot pain M79.672 ; Atherosclerosis of artery of both lower extremities I70.203 ; Tinea unguium B35.1 ; Pain in left toe(s) M79.675 ; Pain in right toe(s) M79.674 and Puncture wound of right foot with foreign body, initial encounter S91.341A [facility] [address] [place] [address] 10/10/2024 Jacquie Acevedo [facility] [address] [place] [address] 03/14/2025 Jacquie Acevedo Assessments Encounter Date Diagnosis (ICD Code) Assessment Notes Treatment Notes Treatment Clinical Notes Section Notes 05/31/2024 Plantar wart (ICD-10 - B07.0) 08/14/2024 Plantar wart (ICD-10 - B07.0) 05/31/2024 Hammertoe of left foot (ICD-10 - M20.42) 08/14/2024 Right foot pain (ICD-10 - M79.671) 11/01/2024 Plantar wart (ICD-10 - B07.0) 11/01/2024 Other hammer toe(s) (acquired), left foot (ICD-10 - M20.42) 01/03/2025 Plantar wart (ICD-10 - B07.0) 03/14/2025 Plantar wart (ICD-10 - B07.0) 01/03/2025 Right foot pain (ICD-10 - M79.671) 05/16/2025 Plantar wart (ICD-10 - B07.0) 05/16/2025 Right foot pain (ICD-10 - M79.671) 01/03/2025 Left foot pain (ICD-10 - M79.672) 03/14/2025 Right foot pain (ICD-10 - M79.671) 11/01/2024 Right foot pain (ICD-10 - M79.671) 08/14/2024 Left foot pain (ICD-10 - M79.672) 05/31/2024 Metatarsalgia of left foot (ICD-10 - M77.42) 05/31/2024 Metatarsalgia of right foot (ICD-10 - M77.41) 08/14/2024 Atherosclerosis of artery of both lower extremities (ICD-10 - I70.203) 11/01/2024 Left foot pain (ICD-10 - M79.672) 03/14/2025 Left foot pain (ICD-10 - M79.672) 01/03/2025 Atherosclerosis of artery of both lower extremities (ICD-10 - I70.203) 05/16/2025 Left foot pain (ICD-10 - M79.672) 05/16/2025 Atherosclerosis of artery of both lower extremities (ICD-10 - I70.203) 03/14/2025 Atherosclerosis of artery of both lower extremities (ICD-10 - I70.203) 11/01/2024 Atherosclerosis of artery of both lower extremities (ICD-10 - I70.203) 01/03/2025 Tinea unguium (ICD-10 - B35.1) 05/31/2024 Right foot pain (ICD-10 - M79.671) 08/14/2024 Tinea unguium (ICD-10 - B35.1) 08/14/2024 Pain in left toe(s) (ICD-10 - M79.675) 05/31/2024 Left foot pain (ICD-10 - M79.672) 01/03/2025 Pain in left toe(s) (ICD-10 - M79.675) 11/01/2024 Tinea unguium (ICD-10 - B35.1) 03/14/2025 Tinea unguium (ICD-10 - B35.1) 05/16/2025 Tinea unguium (ICD-10 - B35.1) 05/16/2025 Pain in left toe(s) (ICD-10 - M79.675) 03/14/2025 Pain in left toe(s) (ICD-10 - M79.675) 05/31/2024 Atherosclerosis of artery of both lower extremities (ICD-10 - I70.203) 11/01/2024 Pain in left toe(s) (ICD-10 - M79.675) 01/03/2025 Pain in right toe(s) (ICD-10 - M79.674) 08/14/2024 Pain in right toe(s) (ICD-10 - M79.674) 05/31/2024 Tinea unguium (ICD-10 - B35.1) 11/01/2024 Pain in right toe(s) (ICD-10 - M79.674) 03/14/2025 Pain in right toe(s) (ICD-10 - M79.674) 05/16/2025 Pain in right toe(s) (ICD-10 - M79.674) 05/16/2025 Puncture wound of right foot with foreign body, initial encounter (ICD-10 - S91.341A) 11/01/2024 Arthritis of joint of lesser toe, left (ICD-10 - M19.072) 05/31/2024 Pain in left toe(s) (ICD-10 - M79.675) 05/31/2024 Pain in right toe(s) (ICD-10 - M79.674) 05/31/2024 Hammertoe of right foot (ICD-10 - M20.41) 05/31/2024 Other Plan Of Treatment Next Appt Details Provider Name:Jacquie wesley, 07/18/2025 09:00:00 AM, [address] [place] [address], [phone], Provider Name:Jacquie wesley, 09/19/2025 09:00:00 AM, [address] [place] [address], [phone], Insurance Providers Payer Name Payer Address Payer Phone Subscriber Number Group Number Insured Name Patient Relationship to Insured Coverage Start Date Coverage End Date [facility] [employer] Claims [address] [facility] [place] [address] [id number] Bonnie Choi Self - patient is the insured Medical (General) History Medical History History ICD Code Back,Hip,and Knee pain Cancer Crohns disease Diverticulitis Gall bladder removed Glaucoma Hiatal hernia High blood pressure Poor circulation Reflux ( GERD) Surgical History Surgery Date(Month/Year) lung surgery 01/2018 Gall bladder removal hysterectomy cancer surgery
--- OUTSIDE RECORDS SUMMARY | 2025-05-30 09:31 | XMS_ITS | Encounter Summary ---
Author Organization [facility] Address [address] [place] [address] Care Team Providers Care Data Support Analyst Name Role Phone Cindy Simpson MD Primary Care Provider [phone] Encounter Details Date Type Department Care Team ([facility] st Contact Info) Description 04/29/2025 Telephone Adult Medicine [facility] [address] [place] [address] Cindy Simpson MD [address] [place] [address] Social History Tobacco Use Types Packs/Day Years Used Date Smoking Tobacco: Former Cigarettes 1.5 51 0 [birth year]/12/1957 - 2008 Smokeless Tobacco: Never Alcohol Use Standard Drinks/Week Comments No 0 [...] care for your loved ones. For example, children's book author or elderly care for an older adult? [...] Orientation Straight 07/10/2024 3: 31 PM EST documented as of this encounter Plan of Treatment Upcoming Encounters Date Type Department Care Team (Late st Contact Info) Description 06/06/2025 9:30 AM EST Office Visit Adult Medicine [facility] [address] [place] [address] Magno Carrasquillo PA [address] [place] [address] 07/17/2025 3:00 PM EST Office Visit Urogynecology [address] [phone] Yessi Nascimento NP [address] [facility] [address] [place] [address] 09/01/2025 2:45 PM EDT Office Visit Pulmonology - [place] [address] [place] [address] Grazyna Ag NP [address] [place] [address] 10/06/2025 9:45 AM EDT Office Visit Adult Medicine [address] [phone] Cindy Simpson MD [address] [place] [address] 04/13/2026 11:30 AM EST Office Visit Urogynecology [address] [phone] Gretchen Lee MD [address] [facility] [address] [place] [address] documented as of this encounter Visit Diagnoses Not on filedocumented in this encounter Additional Health Concerns Assessment Noted Time PHQ-9 Depression Total Score: 0 07/26/19 25 9:15 AM EST A fall risk assessment has been complete d for the patient 07/26/2024 9:12 AM EST documented as of this encounter Care Teams Data Support Analyst Relationship Specialty Start Date End Date Cindy Simpson MD [address] [place] [address] PCP - General 10/09/01 documented as of this encounter
--- OUTSIDE RECORDS SUMMARY | 2025-05-30 09:31 | XMS_ITS ---
Author Organization [facility] [address] [place] [address] [place] [phone] Phone Care Team Providers Care Outpatient Phlebotomist Name Role Phone Cindy Simpson MD Primary Care Provider [phone] Active Problems Problem Noted Date Diagnosed Date [...] chest CT scan which was performed at [facility] in January 2025 and shows the nodule [...] breath and continues to follow with her tag stringer for her COPD. She was informed that [...] resection. We discussed the size, shape, and change management time as features that raise or lower [...] 10/26/2020 Syncope 01/09/2018 Overview (03/18/2024): hspitalization at [facility] December 17 no specific etiology discovered. PVD [...] Stage 2 moderate COPD by GOLD classification Current Treatment and Therapy Plans No current plan information found. Past Treatment and Therapy Plans No past plan information found. Lifetime Dose Tracking * Chemical Lifetime Dose Automatic Entry Manual Entr y CTDIvol 4.89 mGy 4.89 mGy 0 mGy
--- OUTSIDE RECORDS SUMMARY | 2025-05-30 09:31 | XMS_ITS | Clinical Summary ---
Author Organization [facility] Prior to 11/09/[address] [place] [address] Care Team Providers Care Electromedical Equipment Repairer Name Role Phone Cindy Simpson MD Primary Care Provider [phone] Allergies Active Allergy Reactions Criticality Noted Date Comments Seasonal 03/09/2017 Medications Medication Sig Dispensed Refills Start Date End Date Status docusate sodium (COLACE) 100 MG capsule Take 100 mg by mouth 2 (two) times a day. 0 Active aspirin EC 81 MG tablet Take 81 mg by mouth daily. 0 Active omeprazole (PRILOSEC) 20 MG capsule Take 20 mg by mouth daily. 0 Active simvastatin (ZOCOR) tablet 10 mg Take 10 mg by mouth every night at bedtime. 0 Active metoprolol tartrate (LOPRESSOR) 25 MG tablet Take 25 mg by mouth 2 (two) times a day. 0 Active lisinopril (PRINIVIL,ZESTRIL) tablet 40 mg Take 40 mg by mouth daily. 0 Active hydrochlorothiazide (HYDRODIURIL) tablet 25 mg Take 25 mg by mouth daily. 0 Active cilostazol (PLETAL) 50 MG tablet Take 50 mg by mouth 2 (two) times a day. 0 Active ipratropium-albuterol (COMBIVENT RESPIMAT) 20-100 MCG/ACT inhaler Inhale 1 puff into the lungs 4 (four) times a day. 0 Active Active Problems No known active problems Family History Medical History Relation Name Comments Emphysema Father Diabetes Mother Stroke Mother Cancer Sister Relation Name Status Comments Father Mother Sister Social History Tobacco Use Types Packs/Day Years Used Date Smoking Tobacco: Former Smokeless Tobacco: Never Alcohol Use Standard Drinks/Week Comments No 0 (1 standard drink = 0.6 oz pur e alcohol) Sex and Gender Information Value Date Recorded Sex Assigned at Not on file Gender Identity Not on file Sexual Orientation Not on file Last Filed Vital Signs Vital Sign Reading Time Taken Comments Blood Pressure 147/73 09/28/2017 3:30 PM EDT Pulse 94 09/28/2017 3:30 PM EDT Temperature - - Respiratory Rate - - Oxygen Saturation - - Inhaled Oxygen Concentration - - Weight 74.8 kg (165 lb) 09/28/2017 3:30 PM EDT Height 152.4 cm (5') 09/28/2017 3:30 PM EDT Body Mass Index 32.22 09/28/2017 3:30 PM EDT Plan of Treatment Health Maintenance Due Date Last Done Comments Depression Screening 1956 Preventative Health Evaluation 1962 Shingrix-Zoster Vaccine (1 of 2) 1994 Fall Risk Assessment 2009 Osteoporosis Screening (DEXA Scan) 2009 RSV Adult > 60+ Yrs or (1 - 1-dose 75+ series) 2019 COVID-19 Vaccine ( season) 2025 04/30/2023, 03/28/2021, 08/15/2020, Additional history exists Influenza Vaccine (#1) 2025 2, 03/10/2021, 03/03/2020, Additional history exists DTap / Tdap / Td (2 - Td or Tdap) 05/01/2033 05/01/2023 Pneumococcal Vaccine Completed 05/01/2023, 10/02/2017, 04/13/2010, Additional history exists Hepatitis B Vaccines Aged Out No long er eligible based on patient's age to complete this topic RSV Ped < 20 months Aged Out No longe r eligible based on patient's age to complete this topic Care Teams Electromedical Equipment Repairer Relationship Specialty Start Date End Date Cindy Simpson MD PCP - General Internal Medicine 03/09/17
[2025-05-30] MEDS: Lactated Ringers 1,000 ML 999 ML IV (09:52)
[2025-05-30 11:10] LABS: Troponin-I High Sensitivity 4.1 ng/L (<3.5-17.0)
[2025-05-30] MEDS: iohexoL 350 MG/ML 100 ML INFUS..BTL IV (11:21)
[2025-05-30 12:08] LABS: Appearance Urine Clear; Glucose Urine UA Negative (Negative); PH 6.0 (5.0-9.0); Specific Gravity - Urine <= 1.005 (1.005-1.025)
== END 2025-05-30 14:29 | disposition home or self-care (01) ==
PROVIDERS: Physician Assistant Medical; Emergency Provider Emergency Medicine; PCP Internal Medicine
DX: S39.91XA Unspecified injury of abdomen, initial encounter (principal); R07.9 Chest pain, unspecified; J44.9 Chronic obstructive pulmonary disease, unspecified; I10 Essential (primary) hypertension; R10.23 Pelvic and perineal pain bilateral; W18.12XA Fall from or off toilet with subsequent striking against object, initial encounter; Y93.9 Activity, unspecified; Y92.9 Unspecified place or not applicable; Y99.9 Unspecified external cause status; Z79.899 Other long term (current) drug therapy; Z03.818 Encounter for observation for suspected exposure to other biological agents ruled out
CPT/HCPCS: 36415; 71046; 71275; 74177; 80053; 81003; 83735; 83880; 84484; 85025; 87637; 93005; 96365; 96375; 99285; J1200; J2919; J7120; Q9967

== ENCOUNTER → 2025-05-30 08:10 | Outpatient (BNV) | payer OTHER, SELFPAY | PROVIDERS: Emergency Provider Emergency Medicine; Visit Provider Radiology Diagnostic Radiology | DX: R10.9 Unspecified abdominal pain (principal); R07.89 Other chest pain; Z04.3 Encounter for examination and observation following other accident; R07.9 Chest pain, unspecified | CPT/HCPCS: 71046; 71275; 74177 ==

== ENCOUNTER → 2025-05-30 08:10 | Outpatient (BNV) | payer OTHER, SELFPAY | PROVIDERS: Emergency Provider Emergency Medicine; PCP Internal Medicine; Visit Provider Internal Medicine Cardiovascular Disease | DX: R07.9 Chest pain, unspecified (principal) | CPT/HCPCS: 93010 ==